=== PATIENT | female | born 1975 | race Caucasian/White ===

== ENCOUNTER → 2020-01-26 14:40 | Outpatient (BNVA) | payer MEDICARE, MEDICAID, SELFPAY | PROVIDERS: Visit Provider Nurse Practitioner Family | DX: R50.9 Fever, unspecified (principal); R05 Cough; J20.9 Acute bronchitis, unspecified | CPT/HCPCS: 71046; 87081; 87804; 87880 ==

== ENCOUNTER → 2020-02-22 13:02 | Outpatient (BNVA) | payer MEDICARE, MEDICAID, SELFPAY | PROVIDERS: Visit Provider Nurse Practitioner Family | DX: Z11.3 Encounter for screening for infections with a predominantly sexual mode of transmission (principal); J30.89 Other allergic rhinitis | CPT/HCPCS: 86592; 87491; 87591; 87661; 87806 ==

== ENCOUNTER → 2020-05-29 11:51 | Outpatient (BNVA) | payer MEDICARE, MEDICAID, SELFPAY | PROVIDERS: Visit Provider Family Medicine | DX: E11.65 Type 2 diabetes mellitus with hyperglycemia (principal); J45.41 Moderate persistent asthma with (acute) exacerbation; M79.7 Fibromyalgia; L03.90 Cellulitis, unspecified; E78.2 Mixed hyperlipidemia | CPT/HCPCS: 80053; 80061; 83036; 84443; 85025 ==

== ENCOUNTER → 2020-10-16 17:10 | Outpatient (BNVA) | payer MEDICARE, MEDICAID, SELFPAY | PROVIDERS: Visit Provider Nurse Practitioner Family | DX: E11.65 Type 2 diabetes mellitus with hyperglycemia (principal) | CPT/HCPCS: 80053; 80061; 81015; 82043; 82607; 83036; 83735; 84443; 85025 ==

== ENCOUNTER → 2020-11-08 10:48 | Outpatient (BNVA) | payer MEDICARE, MEDICAID, SELFPAY | PROVIDERS: Visit Provider Nurse Practitioner Family | DX: R74.8 Abnormal levels of other serum enzymes (principal); D72.829 Elevated white blood cell count, unspecified | CPT/HCPCS: 80053; 85025 ==

== ENCOUNTER 2021-01-30 12:04 | Emergency (ER) | payer MEDICARE, MEDICAID, SELFPAY ==
[2021-01-30 12:13] VITALS: BP 167/97; PULSE 77; RESP 18; TEMP 36.9; O2SAT 97; BMI 57.4
--- NOTE | 2021-01-30 12:24 | CT_ITS ---
WS: [id number] CT ABDOMEN AND PELVIS WITH CONTRAST HISTORY: RLQ abdominal pain TECHNIQUE: Imaging performed of the abdomen and pelvis with IV contrast. Single phase imaging of the abdomen. Coronal and sagittal reformats are submitted. All CT scans at [facility] use at least one of these dose optimization techniques: automated exposure control; mA and/or kV adjustment per patient size (includes targeted exams where dose is matched to clinical indication); or iterativ e reconstruction. IV CONTRAST: Omnipaque 300; 95 mL IV. Oral contrast: No DLP: 1822.12 mGy.cm COMPARISON: 04/11/2017 Lower thorax: Ovoid 5 mm nodule in the superior LEFT lower lobe abuts the fissure. This nodule was pr esent on the study from 10/17/2011. Heart is normal size. Small hiatal hernia. Liver/biliary system: Diffuse hepatic steatosis and moderate hepatomegaly. No liver lesions are ident ified. No bile duct dilatation. Gallbladder: Status post cholecystectomy. Pancreas: Normal. Spleen: Normal. Adrenal glands: Normal. Right kidney: Normal. Left kidney: Normal. Aorta: Retroaortic LEFT renal vein. Lymphadenopathy: None. Free fluid: No significant amount of free fluid. GI tract: The appendix is normal. Moderate fecal retention throughout the colon, greatest in the RIGH T colon. No obstructing lesions are identified. No colitis. Abdominal wall: There is diffuse soft tissue edema noted bilaterally. Pelvis: Prior hysterectomy. No pelvic mass or adenopathy. Minimally distended urinary bladder. Bones: Unremarkable. CT/CT abdomen pelvis w con* [id number] IMPRESSION: 1. Normal appendix. 2. Mild diffuse constipation. 3. No GI tract obstruction. 4. Prior hysterectomy and cholecystectomy. 5. Diffuse soft tissue anasarca.
--- NOTE | 2021-01-30 12:26 | ECG_ITS ---
[facility] Test Date: 2021-01-30 Pat Name: Jaylin Mathew Department: Room: Gender: Female Energy Trading Analyst: : 1975 Requested By: Ric Mcgraw Order Number: [id number] Yeimi MD: Thu Liang M.D. Measurements Intervals [place] Rate: 73 P: 34 [place]: 136 QRS: 43 QRSD: 77 T: 42 QT: 368 QTc: 406 Interpretive Statements SINUS RHYTHM SEPTAL MYOCARDIAL INFARCTION , PROBABLY OLD [40+ ms Q WAVE IN V1/V2] Compared to ECG 07/24/2017 01:39:33 Myocardial infarct finding now present Electronically Signed On 01-30-2021 23:52:02 CREMATOR by Thu Liang M.D. [id number]
--- NOTE | 2021-01-30 12:56 | ED_ITS ---
HPI - Abdominal Pain General: Chief Complaint: Abdominal Pain Stated Complaint: *poss appendicitis. Time Seen by Provider: 01/30/21 12:26 History of Present Illness: HPI narrative: The patient is a 45-year-old female who comes to the ER complaining of right lower quadrant tenderness. She was sent from her primary care's office to rule out possible appendicitis. She says the pain has been off and on for 3 days and is located in [facility] [place]. She has history of diabetes, hypertension, obstructive sleep apnea MD elicited complaint: abdominal pain Onset (ago): day(s) (3) Pain Consistency: intermittent Location: RLQ Severity: moderate Quality: cramping and sharp Exacerbating factors: nothing Relieving factors: nothing Associated Symptoms: Reports no associated symptoms; Denies GI cramping, diarrhea, nausea and vomiting Review of Systems General: Reports: 10 or more systems reviewed and unremarkable except in HPI and below Const: Denies: fatigue Eyes: Denies: change in vision, blurry vision or eye redness ENMT: Denies: throat pain, swelling of lips/tongue, ear or mastoid pain or n daniel congestion Card: Denies: chest pain, palpitations, irregular heart rhythm, edema, dyspnea on exertion or orthopnea Resp: Denies: dyspnea, productive cough or non-productive cough GI: Reports: abdominal pain; Denies: nausea, vomiting, diarrhea or GI cramping : Denies: flank pain, difficulty voiding, urinary frequency or urinary urgency Musc: Denies: neck pain, back pain, extremity pain, joint pain, joint redness, limited range of motion or muscle weakness Skin/Breast: Denies: rash, pruritus, erythema, skin pain or skin tenderness Neuro: Denies: headache(s), numbness in extremities, weakness in extremities, sensory changes, difficulty walking, dizziness, confusion or Slurred speech present Psych: Denies: anxiety or depression Endo: Denies: polyuria All/Imm: Denies: urticaria, throat swelling or tongue swelling PFSH ED PFSH: Medical History (Updated 01/30/21 @ 15:37 by Ric Mcgraw MD) Acid reflux Asthma Diabetes mellitus Exertional dyspnea Fibromyalgia Insomnia Mixed hyperlipidemia Nicotine abuse OCD (obsessive compulsive disorder) PAULINA (obstructive sleep apnea) TMJ disease Surgical History History of delivery History of cholecystectomy History of hysterectomy Family History Father Emphysema lung Myocardial infarct Mother Stroke Multiple sclerosis Social History Smoking and tobacco status: current every day smoker Alcohol intake: current Alcohol intake frequency: holidays/special occasions only Marital status: Physical Exam Const: COMMON NORMALS: no acute distress, average body habitus, patient oriented x3, no limitations, healthy appearing, alert and well nourished GENERAL APPEARANCE: cooperative, comfortable, well kempt and well developed NUTRITIONAL APPEARANCE: overweight ORIENTATION/CONSCIOUSNESS: Yes awake, Yes oriented to person, Yes oriented to place and Yes oriented to time HENMT: COMMON NORMALS: normocephalic, external ears normal and Normal external nose present HEAD & SCALP: normal to inspection and normocephalic NOSE: Normal external nose present EXTERNAL EAR: Yes external ears normal MOUTH: Normal oral and palatal mucosa present THROAT: posterior oropharynx normal Eye: COMMON NORMALS: Equal, round and reactive pupils present and EOMs intact bilaterally GENERAL EYE: appearance normal, both eyes and all related stru ctures PUPIL: Yes Equal, round and reactive pupils present Neck/C-Spine: COMMON NORMALS: full ROM, no lymphadenopathy, no meningeal signs and no JVD GENERAL: Yes normal visual inspection Lymph: LYMPHATIC: no lymphadenopathy noted Chest: COMMONS NORMALS: normal inspection of the chest and normal palpation of entire chest wall Resp: COMMON NORMALS: normal respiratory effort, No retractions, No use of accessory muscles, clear to auscultation bilaterally and percussion normal EFFORT & INSPECTION: Yes able to speak in complete sentences AUSCULTATION: clear to auscultation bilaterally PERCUSSION: percussion normal Cardio: COMMON NORMALS: no JVD, regular rate, regular rhythm, S1 normal heart sound present, S2 normal heart sound present and Peripheral pulses 2+ throughout RATE: regular rate RHYTHM: regular rhythm HEART SOUNDS: S1 normal heart sound present and S2 normal heart sound present PERIPHERAL PULSES: Peripheral pulses 2+ throughout GI: COMMON NORMALS: Normal to inspection, nondistended, normoactive bowel sounds present, Soft to palpation and no masses INSPECTION: Yes normal to inspection PALPATION: Yes Soft to palpation and Yes Tenderness to palpation present (GI) Details: RLQ (Worst over McBurney's point) : COMMON NORMALS: Yes no CVA tenderness BLADDER/KIDNEY EXAM: Yes no CVA tenderness Back/Pelvis: COMMON NORMALS: no CVA tenderness, thoracic and lumbar spine normal to inspection, no thoracic nor lumbar tenderness and thoraco-lumbar ROM normal Extremity: COMMON NORMALS: normal to inspection, full ROM, capillary refill normal, no joint enlargement and no pedal edema GENERAL: Yes normal exam except as noted Neuro: COMMON NORMALS: patient oriented x3, CN's II-XII intact bilaterally, moves all extremities, no focal motor deficits, no sensory deficits noted and gait normal SENSORIUM/ORIENTATION: Yes alert, Yes oriented to person, Yes oriented to place and Yes oriented to time MENINGEAL SIGNS: Yes no meningeal signs Psych: COMMON NORMALS: mental status grossly normal, Normal thought process present, cooperative, normal affect and speech normal APPEARANCE: Yes well kempt ATTITUDE: Yes calm SPEECH: Yes normal speech THOUGHT PROCESS: Normal thought process present Skin: COMMON NORMALS: no rashes or lesions noted GENERAL SKIN EXAM: no rashes or lesions noted Course Vital Signs: Vital signs: Vital Signs Temperature 98.5 F 01/30/21 12:13 Pulse Rate 67 01/30/21 15:00 Respiratory Rate 18 01/30/21 15:00 Blood Pressure 126/86 01/30/21 15:00 Pulse Oximetry 96 01/30/21 15:00 MDM - Abdominal Pain MDM Narrative: Medical decision making narrative: The patient came in with right lower quadrant abdominal pain. CT is negative for appendicitis. Her pain is of unclear cause but likely from constipation. Recommended stool softeners to her. Follow-up with primary doctor in a few days. ER with worsening symptoms. Lab Data: Labs: Lab Results 01/30/21 01/30/21 01/30/21 Range/Units 12:54 12:54 12:54 WBC 11.3 H (4.0-10.0) 10^3/ uL RBC 4.66 (4.1-5.3) 10^6/u L Hgb 13.0 (11.5-15.3) g/dL Hct 40.9 (37.0-47.0) % MCV 87.8 (81-99) fL MCH 27.9 L (28.0-34.0) pg MCHC 31.8 (30.0-36.0) g/dL RDW 13.2 (12.1-15.1) % Plt Count 257 (130-400) 10^3/c mm MPV 11.4 H (7.4-10.4) fL Neut % (Auto) 75.1 % Lymph % (Auto) 18.7 % [place] % (Auto) 4.4 % Eos % (Auto) 0.7 % Baso % (Auto) 0.4 % Neut # (Auto) 8.45 H (1.8-7.7) 10^3/u L Lymph # (Auto) 2.1 (0.8-4.8) 10^3/u L [place] # (Auto) 0.5 (0.2-0.9) 10^3/u L Eos # (Auto) 0.1 (0.0-0.8) 10^3/u L Baso # (Auto) 0.1 (0.0-0.1) 10^3/u L Nucleated RBC % (a uto) 0 % Nucleated RBCs # 0.0 /100WBC Sodium 129 L (136-145) mmol/L Potassium 4.0 (3.5-5.1) mmol/L Chloride 94 L (98-107) mmol/L Carbon Dioxide 26 (22-29) mmol/L Anion Gap 13.0 (5-19) BUN 6 (6-20) mg/dL Creatinine 0.5 (0.5-0.9) mg/dL GFR Calculation 134.0 H (90-130) mL/min Glucose 288 H (65-115) mg/dL Calculated Osmolal ity 276 L (285-295) mOsm/k g Lactate 1.4 (0.5-2.2) mmol/L Calcium 8.6 (8.5-10.5) mg/dL Total Bilirubin 0.3 (0.15-1.2) mg/dL AST 16 (0-32) U/L ALT 24 (0-33) U/L Alkaline Phosphata se 113 H (35-105) IU/L Total Protein 6.9 (6.6-8.7) g/dL Albumin 3.4 L (3.5-5.2) g/dL Globulin 3.5 (1.3-4.6) g/dL Lipase 33 (13-60) U/L HCG, Qual (Negative) Urine Color (Yellow) Urine Appearance (CLEAR) Urine pH (5-7) Ur Specific Gravit y (1.005-1.030) Urine Protein (Negative) Urine Glucose (UA) (Normal) Urine Ketones (Negative) Urine Blood (Negative) Urine Nitrate (Negative) Urine Bilirubin (Negative) Prot Sulfosalicyli c Acd (Negative) Urine Urobilinogen (Negative) mg/dL Ur Leukocyte Lilibeth ase (Negative) 01/30/21 01/30/21 Range/Units 13:14 13:14 WBC (4.0-10.0) 10^3/ uL RBC (4.1-5.3) 10^6/u L Hgb (11.5-15.3) g/dL Hct (37.0-47.0) % MCV (81-99) fL MCH (28.0-34.0) pg MCHC (30.0-36.0) g/dL RDW (12.1-15.1) % Plt Count (130-400) 10^3/c mm MPV (7.4-10.4) fL Neut % (Auto) % Lymph % (Auto) % [place] % (Auto) % Eos % (Auto) % Baso % (Auto) % Neut # (Auto) (1.8-7.7) 10^3/u L Lymph # (Auto) (0.8-4.8) 10^3/u L [place] # (Auto) (0.2-0.9) 10^3/u L Eos # (Auto) (0.0-0.8) 10^3/u L Baso # (Auto) (0.0-0.1) 10^3/u L Nucleated RBC % (a uto) % Nucleated RBCs # /100WBC Sodium (136-145) mmol/L Potassium (3.5-5.1) mmol/L Chloride (98-107) mmol/L Carbon Dioxide (22-29) mmol/L Anion Gap (5-19) BUN (6-20) mg/dL Creatinine (0.5-0.9) mg/dL GFR Calculation (90-130) mL/min Glucose (65-115) mg/dL Calculated Osmolal ity (285-295) mOsm/k g Lactate (0.5-2.2) mmol/L Calcium (8.5-10.5) mg/dL Total Bilirubin (0.15-1.2) mg/dL AST (0-32) U/L ALT (0-33) U/L Alkaline Phosphata se (35-105) IU/L Total Protein (6.6-8.7) g/dL Albumin (3.5-5.2) g/dL Globulin (1.3-4.6) g/dL Lipase (13-60) U/L HCG, Qual Negative (Negative) Urine Color Yellow (Yellow) Urine Appearance Clear (CLEAR) Urine pH 8 H (5-7) Ur Specific Gravit y 1.010 (1.005-1.030) Urine Protein Neg (Negative) Urine Glucose (UA) 4+ H (Normal) Urine Ketones Negative (Negative) Urine Blood Neg (Negative) Urine Nitrate Negative (Negative) Urine Bilirubin Neg (Negative) Prot Sulfosalicyli c Acd Negative (Negative) Urine Urobilinogen Norm (Negative) mg/dL Ur Leukocyte Lilibeth ase Negative (Negative) Discharge Plan Discharge Patient Disposition: Home Clinical Impression: Abdominal pain Condition: Stable Prescriptions: No Action albuterol sulfate 90 mcg/actuation HFA aerosol inhaler See Rx Instructions .ROUTE .COMPLEX Qty: 8.5 RF: 5 albuterol sulfate 2.5 mg /3 mL (0.083 %) solution for nebulization 2.5 mg INHALATION Q4H PRN (Reason: shortness of breath or wheezing) Qty: 180 RF: 5 (DME) pen needle, diabetic [Lite Touch Insulin Pen [place]] 31 gauge x 5/16 needle See Rx Instructions .ROUTE .MEDSUPPLY Qty: 100 RF: 3 (DME) glucose meter See Rx Instructions .Route .MEDSUPPLY Qty: 1 RF: 0 (DME) Blood Glucose Test Strip See Rx Instructions .ROUTE .MEDSUPPLY Qty: 50 RF: 5 cyclobenzaprine 10 mg tablet 10 mg .ROUTE TID PRN (Reason: muscle spasm) Qty: 30 RF: 0 Lantus Solostar U-100 Insulin 100 unit/mL (3 mL) insulin pen 45 unit SUBCUT DAILY 30 Days Qty: 15 RF: 3 (DME) C-Pap Supplies See Rx Instructions .Route .MEDSUPPLY Qty: 1 RF: 0 furosemide 40 mg tablet 40 mg PO DAILY@0900 RF: 0 atorvastatin 40 mg tablet 40 mg PO DAILY@0900 RF: 0 potassium chloride 10 mEq capsule, extended release 10 meq PO DAILY@0900 RF: 0 citalopram 40 mg tablet 40 mg PO DAILY@0900 RF: 0 cetirizine 10 mg tablet 10 mg PO DAILY@0900 RF: 0 glipizide 10 mg tablet 10 mg PO DAILY@0900 RF: 0 gabapentin 400 mg capsule 400 mg PO BID@899,2099 RF: 0 trazodone 150 mg tablet 150 mg PO BEDTIME@2100 RF: 0 omeprazole 20 mg capsule,delayed release(DR/EC) 20 mg PO DAILY@0900 RF: 0 montelukast 10 mg tablet 10 mg PO DAILY@0900 RF: 0 fluticasone propionate 50 mcg/actuation spray,suspension 1 spray intranasal DAILY@0900 RF: 0 Discharge Orders: Discharge ED (Routine); Ordered 01/30/21 Ordered By: Ric Mcgraw Referrals: Robina Stephen MD [Primary Care Provider] - Discharge Diet: Advance as tolerated Discharge Activity: Resume usual activity Patient Instructions: Abdominal Pain (ED), Opioid Safety Activity Restrictions/Additional Instructions: You have a abdominal pain of unclear cause but likely your intestines cramping. The CAT scan does not show appendicitis. Please return to the ER with worsening symptoms otherwise follow-up with your primary care physician in a few days. Please take a stool softener to keep your bowel movements soft and regular. Coding Level of Care Code ED Food Technologist for Mathew Fwd Exam Comprehensive
[2021-01-30 13:10] VITALS: BP 128/71; PULSE 73; RESP 16; O2SAT 96
[2021-01-30 13:28] LABS: Lactate (Lactic Acid level) 1.4 mmol/L (0.5-2.2)
[2021-01-30 13:29] LABS: Basophils # 0.1 10^3/uL (0.0-0.1); Basophils % 0.4 %; Eosinophils # 0.1 10^3/uL (0.0-0.8); Eosinophils % 0.7 %; Hematocrit 40.9 % (37.0-47.0); Lymphocytes # 2.1 10^3/uL (0.8-4.8); Lymphocytes % 18.7 %; Mean Corpuscular HGB Conc 31.8 g/dL (30.0-36.0); Mean Corpuscular Hemoglobin 27.9 pg (28.0-34.0); Mean Corpuscular Volume 87.8 fL (81-99); Mean Platelet Volume 11.4 fL (7.4-10.4); Monocytes # 0.5 10^3/uL (0.2-0.9); Monocytes % 4.4 %; Neutrophils # 8.45 10^3/uL (1.8-7.7); Neutrophils % 75.1 %; Nucleated Red Blood Cells % 0 %; Platelet Count 257 10^3/cmm (130-400); Red Blood Count 4.66 10^6/uL (4.1-5.3); Red Cell Distribution Width 13.2 % (12.1-15.1); White Blood Count 11.3 10^3/uL (4.0-10.0)
[2021-01-30 13:37] LABS: Alanine Aminotransferase 24 U/L (0-33); Albumin Level 3.4 g/dL (3.5-5.2); Alkaline Phosphatase 113 IU/L (35-105); Aspartate Amino Transferase 16 U/L (0-32); Blood Urea Nitrogen 6 mg/dL (6-20); Calcium 8.6 mg/dL (8.5-10.5); Carbon Dioxide 26 mmol/L (22-29); Chloride 94 mmol/L (98-107); Globulin 3.5 g/dL (1.3-4.6); Glucose 288 mg/dL (65-115); Lipase 33 U/L (13-60); Osmolality Calculated 276 mOsm/kg (285-295); Sodium 129 mmol/L (136-145); Total Bilirubin 0.3 mg/dL (0.15-1.2); Total Protein 6.9 g/dL (6.6-8.7)
[2021-01-30 13:41] LABS: Add Urine Microscopic? NO
[2021-01-30 13:47] LABS: Bilirubin Urine Neg (Negative); Blood Urine Neg (Negative); Glucose Urine UA 4+ (Normal); HCG Qualitative Urine. Negative (Negative); Ketones Urine Negative (Negative); Leukocyte Esterase Urine Negative (Negative); Nitrate Urine Negative (Negative); Protein Urine Neg (Negative); Sulfosalicylic Acid Urine Negative (Negative); Urine Appearance Clear (CLEAR); Urine Color Yellow (Yellow); Urobilinogen Urine Norm (Negative); pH Urine 8 (5-7)
[2021-01-30] MEDS: iohexol 300 mg/mL 100 mL Btl IV (13:49)
[2021-01-30 14:00] VITALS: BP 107/64; PULSE 67; RESP 17; O2SAT 96
[2021-01-30 15:00] VITALS: BP 126/86; PULSE 67; RESP 18; O2SAT 96
[2021-01-30 16:11] VITALS: BP 126/86; PULSE 67; RESP 18; O2SAT 96
== END 2021-01-30 16:13 | disposition home or self-care (01) ==
PROVIDERS: Emergency Provider Family Medicine; PCP Family Medicine
DX: R10.9 Unspecified abdominal pain (principal); Z79.4 Long term (current) use of insulin; E11.9 Type 2 diabetes mellitus without complications; E78.2 Mixed hyperlipidemia; F17.210 Nicotine dependence, cigarettes, uncomplicated
CPT/HCPCS: 74177; 80053; 81003; 81025; 83605; 83690; 85025; 93005; 99283; 99291; Q9967

== ENCOUNTER → 2021-03-12 12:17 | Outpatient (BNVA) | payer MEDICARE, MEDICAID, SELFPAY | PROVIDERS: PCP Family Medicine; Visit Provider Family Medicine | DX: E11.65 Type 2 diabetes mellitus with hyperglycemia (principal); E78.2 Mixed hyperlipidemia; M79.7 Fibromyalgia; M54.9 Dorsalgia, unspecified; G89.29 Other chronic pain | CPT/HCPCS: 80053; 80061; 83036; 84443; 85025 ==

== ENCOUNTER 2021-03-23 10:00 | Emergency (ER) | payer MEDICARE, MEDICAID, SELFPAY ==
[2021-03-23 10:07] VITALS: BP 139/78; PULSE 68; RESP 16; TEMP 37.1; O2SAT 96; BMI 56.6
--- NOTE | 2021-03-23 10:14 | ED_ITS ---
HPI - Allergic Reaction General: Chief complaint: Allergic Reaction Stated complaint: REACTION TO MEDICATION Time Seen by Provider: 03/23/21 10:11 History of Present Illness: HPI narrative: Patient is a 46-year-old female comes to the ED with allergic reaction to medication. Patient says that she started taking Jardiance approximately 1 week ago. She says after she has taken Jardiance for the last week she develops a little bit of nausea weakness and malaise and the symptoms will resolve after a couple hours. She says today when she took her Jardiance although symptoms were worse and she was feeling some heart palpitations. Patient also felt like she had some face swelling as well this time after taking Jardiance. Patient called EMS and had them bring her to the hospital to be evaluated. Patient says she has not taken any Benadryl or any other medication after taking the Jardiance. Here in the ED patient describes feeling very weak and is not having any current heart palpitations. Associated symptoms: Reports facial swelling and nausea; Deny abdominal pain or vomiting Review of Systems Const: Reports: fatigue (Generalized weakness) and malaise; Denies: fever(s) or chills Eyes: Denies: change in vision or eye discomfort ENMT: Denies: throat pain, odynophagia, nasal discharge or nasal congestion Card: Reports: palpitations (Resolved by the time she arrived to the ED.); Denies: chest pain, edema, swelling of feet/ankles, dyspnea on exertion or orthopnea Resp: Denies: dyspnea, productive cough or non-productive cough GI: Reports: nausea; Denies: abdominal pain, vomiting, diarrhea, constipation or hematochezia : Denies: flank pain, dysuria or hematuria Musc: Denies: neck pain, back pain or extremity swelling Skin/Breast: Denies: rash or new lesions Neuro: Denies: headache(s), numbness in extremities or weakness in extremities All/Imm: Reports: facial swelling PFSH ED PFSH: Medical History Acid reflux Asthma Diabetes mellitus Exertional dyspnea Fibromyalgia Insomnia Mixed hyperlipidemia Nicotine abuse OCD (obsessive compulsive disorder) PAULINA (obstructive sleep apnea) TMJ disease Surgical History History of delivery History of cholecystectomy History of hysterectomy Family History Father Emphysema lung Myocardial infarct Mother Stroke Multiple sclerosis Social History Smoking and tobacco status: current every day smoker Alcohol intake: current Alcohol intake frequency: holidays/special occasions only Marital status: Physical Exam Narrative: EXAM NARRATIVE: Patient is sitting comfortably on exam bed when I enter the room when she appears in no acute distress or pain. Const: COMMON NORMALS: no acute distress, patient oriented x3 and alert GENERAL APPEARANCE: cooperative and comfortable NUTRITIONAL APPEARANCE: obese HENMT: COMMON NORMALS: normocephalic HEAD & SCALP: normocephalic MOUTH: Normal oral and palatal mucosa present THROAT: posterior oropharynx normal and uvula midline OTHER: No noted facial swelling, lip or tongue swelling noted. Neck/C-Spine: COMMON NORMALS: supple GENERAL: Yes normal visual inspection Resp: COMMON NORMALS: normal respiratory effort, No retractions, No use of accessory muscles and clear to auscultation bilaterally AUSCULTATION: clear to auscultation bilaterally Cardio: COMMON NORMALS: regular rate, regular rhythm, S1 normal heart sound present, S2 normal heart sound present, No gallops present (Cardio), No clicks present (Cardio), No murmurs present (Cardio) and Peripheral pulses 2+ throughout RATE: regular rate RHYTHM: regular rhythm HEART SOUNDS: S1 normal heart sound present and S2 normal heart sound present PERIPHERAL PULSES: Peripheral pulses 2+ throughout GI: COMMON NORMALS: Normal to inspection, nondistended, normoactive bowel sounds present, Soft to palpation, non-tender and no masses PALPATION: Yes Soft to palpation : COMMON NORMALS: Yes no CVA tenderness BLADDER/KIDNEY EXAM: Yes no CVA tenderness Back/Pelvis: COMMON NORMALS: no CVA tenderness Extremity: COMMON NORMALS: normal to inspection Neuro: COMMON NORMALS: patient oriented x3 and moves all extremities SENSORIUM/ORIENTATION: Yes alert Skin: GENERAL SKIN EXAM: dry skin Course Reevaluation(s): Reevaluation #1: Patient was given IM diphenhydramine 50 mg and 125 mg of Solu-Medrol IM and afterwards her symptoms greatly improved. Patient was also given some Zofran to help with nausea. Time: 11:22 Vital Signs: Vital signs: Vital Signs Temperature 98.7 F 04/30/21 10:07 Pulse Rate 65 03/23/21 10:28 Respiratory Rate 18 03/23/21 10:28 Blood Pressure 139/78 03/23/21 10:28 Pulse Oximetry 96 03/23/21 10:28 MDM - Allergic Reaction MDM Narrative: Medical decision making narrative: Patient is a 46-year-old female that comes to the ED after having allergic reaction to medication she is taking. Upon arrival to the ED patient's vitals were stable and she appeared in no acute distress or pain. She was given a dose of IM diphenhydramine and IM Solu-Medrol. Patient says her symptoms resolved after meds. Patient diagnosed with an allergic reaction to a drug and she was told to stop taking the Jardiance which caused her reaction. She was discharged home with a prescription for prednisone and Zofran. She is told to contact her PCP to discuss alternative to Jardiance. Return to ED precautions given. Patient understood and agree with plan. Discharge Plan Discharge Patient Disposition: Home Clinical Impression: Allergic reaction to drug Qualifiers: Encounter type: initial encounter Qualified Code(s): T78.40XA - Allergy, unspecified, initial encounter Condition: Stable Prescriptions: New prednisone 50 mg tablet 50 mg PO DAILY 3 Days Qty: 3 RF: 0 ondansetron HCl 4 mg tablet 4 mg PO Q8H PRN (Reason: nausea and vomiting) Qty: 12 RF: 0 No Action albuterol sulfate 2.5 mg /3 mL (0.083 %) solution for nebulization 2.5 mg INHALATION Q4H PRN (Reason: shortness of breath or wheezing) Qty: 180 RF: 5 (DME) pen needle, diabetic [Lite Touch Insulin Pen [place]] 31 gauge x 5/16 needle See Rx Instructions .ROUTE .MEDSUPPLY Qty: 100 RF: 3 (DME) glucose meter See Rx Instructions .Route .MEDSUPPLY Qty: 1 RF: 0 gabapentin 600 mg tablet 600 mg PO TID Qty: 90 RF: 4 cyclobenzaprine 10 mg tablet 10 mg .ROUTE TID PRN (Reason: muscle spasm) Qty: 30 RF: 0 Lantus Solostar U-100 Insulin 100 unit/mL (3 mL) insulin pen 45 unit SUBCUT DAILY 30 Days Qty: 15 RF: 3 (DME) C-Pap Supplies See Rx Instructions .Route .MEDSUPPLY Qty: 1 RF: 0 albuterol sulfate 90 mcg/actuation HFA aerosol inhaler See Rx Instructions .ROUTE .COMPLEX Qty: 8.5 RF: 2 blood sugar diagnostic [OneTouch Ultra Blue Test Strip] Strip See Rx Instructions .ROUTE .COMPLEX Qty: 50 RF: 5 trazodone 150 mg tablet See Rx Instructions .ROUTE .COMPLEX Qty: 30 RF: 0 glipizide 10 mg tablet See Rx Instructions .ROUTE .COMPLEX Qty: 60 RF: 0 furosemide 40 mg tablet See Rx Instructions .ROUTE .COMPLEX Qty: 30 RF: 0 citalopram 40 mg tablet See Rx Instructions .ROUTE .COMPLEX Qty: 30 RF: 0 cetirizine 10 mg tablet See Rx Instructions .ROUTE .COMPLEX Qty: 30 RF: 5 fluconazole [Diflucan] 150 mg tablet 150 mg PO DAILY 3 Days Qty: 3 RF: 1 Jardiance 25 mg tablet 25 mg PO DAILY Qty: 90 RF: 0 atorvastatin 40 mg tablet 40 mg PO DAILY@0900 RF: 0 potassium chloride 10 mEq capsule, extended release 10 meq PO DAILY@0900 RF: 0 omeprazole 20 mg capsule,delayed release(DR/EC) 20 mg PO DAILY@0900 RF: 0 montelukast 10 mg tablet 10 mg PO DAILY@0900 RF: 0 fluticasone propionate 50 mcg/actuation spray,suspension 1 spray intranasal DAILY@0900 RF: 0 Discharge Orders: Discharge ED (Routine); Ordered 03/23/21 Ordered By: Mookie Braron Referrals: Robina Stephen MD [Primary Care Provider] - Discharge Diet: Regular Discharge Activity: Resume usual activity Patient Instructions: Allergic Reaction Activity Restrictions/Additional Instructions: Call your PCP to discuss your reaction to Jardiance and an alternative medication. Stop taking Jardiance. Take medications as prescribed. Return to the ER or your medical provider if condition worsens. Please read and understand discharge instructions. If any questions, please ask. Coding Level of Care Code ED Senior Investment Analyst for Mathew Fwmelinda Exam Comprehensive
[2021-03-23] MEDS: diphenhydrAMINE 50 mg/mL SDV 1mL IM (10:25)
[2021-03-23 10:28] VITALS: BP 139/78; PULSE 65; RESP 18; O2SAT 96
[2021-03-23] MEDS: ondansetron 4 MG Tablet PO (11:21)
== END 2021-03-23 12:30 | disposition home or self-care (01) ==
PROVIDERS: Emergency Provider Physician Assistant; PCP Family Medicine
DX: T78.40XA Allergy, unspecified, initial encounter (principal); Z79.4 Long term (current) use of insulin; E11.9 Type 2 diabetes mellitus without complications; E78.2 Mixed hyperlipidemia; F17.210 Nicotine dependence, cigarettes, uncomplicated
CPT/HCPCS: 96372; 99283; J1200; J2930; Q0162

== ENCOUNTER → 2021-04-11 08:45 | Outpatient (BNVA) | payer MEDICARE, MEDICAID, SELFPAY | PROVIDERS: PCP Family Medicine; Visit Provider Anesthesiology Pain Medicine | DX: G89.29 Other chronic pain (principal); M47.816 Spondylosis without myelopathy or radiculopathy, lumbar region; M54.9 Dorsalgia, unspecified; F17.210 Nicotine dependence, cigarettes, uncomplicated; Z79.891 Long term (current) use of opiate analgesic | CPT/HCPCS: 99203 ==

== ENCOUNTER → 2021-07-03 10:00 | Outpatient (BNVA) | payer MEDICARE, MEDICAID, SELFPAY | PROVIDERS: PCP Family Medicine; Visit Provider Family Medicine | DX: R10.9 Unspecified abdominal pain (principal); H66.90 Otitis media, unspecified, unspecified ear; H66.93 Otitis media, unspecified, bilateral; N39.0 Urinary tract infection, site not specified | CPT/HCPCS: 81003 ==

== ENCOUNTER 2021-08-14 22:29 | Emergency (ER) | payer MEDICARE, MEDICAID, SELFPAY ==
--- NOTE | 2021-08-14 22:33 | CTR_ITS ---
PROCEDURE INFORMATION: Exam: CT Head Without Contrast Exam date and time: 08/14/2021 10:33 PM Age: 46 years old Clinical indication: Altered mental status/memory loss and weakness, extremity; Confusion or disorientation; Patient HX: AMS. Confusion. Bilateral arm and leg weakness. TECHNIQUE: Imaging protocol: Computed tomography of the head without contrast. Radiation optimization: All CT scans at this facility use at least one of these dose optimization techniques: automated exposure control; mA and/or kV adjustment per patient size (includes targeted exams where dose is matched to clinical indication); or iterative reconstruction. COMPARISON: CT head wo con* [id number] 10/18/2016 9:57 PM RADIATION DOSE METRICS: Total DLP (mGy-cm): 916.86 FINDINGS: Brain: Stable mild nonspecific white matter low attenuation in the left frontal lobe. No acute infarct or hemorrhage. Cerebral ventricles: No ventriculomegaly. Paranasal sinuses: Paranasal sinuses are clear. No air-fluid level. Mastoid air cells: Visualized mastoid air cells are clear. Bones/joints: No calvarial or skull base fracture. Soft tissues: Unremarkable. CT/CT head wo con* [id number] IMPRESSION: 1. No calvarial or skull base fracture. 2. No acute infarct or hemorrhage. Radiation Dose CTDIVOL = (mGy): DLP = 916.86 (mGy-cm)
--- NOTE | 2021-08-14 22:33 | XRR_ITS ---
PROCEDURE INFORMATION: Exam: XR Chest Exam date and time: 08/14/2021 10:33 PM Age: 46 years old Clinical indication: Patient HX: AMS. Confusion. Bilateral arm and leg weakness. TECHNIQUE: Imaging protocol: XR of the chest. Views: 1 view. COMPARISON: CR XR chest 2V* [id number] 01/26/2020 2:43 PM FINDINGS: Lungs: Unremarkable. No consolidation. Pleural spaces: Unremarkable. No pleural effusion. No pneumothorax. Heart/Mediastinum: Unremarkable. No cardiomegaly. Bones/joints: Unremarkable. XR/XR chest 1V portable [id number] IMPRESSION: No acute disease.
--- NOTE | 2021-08-14 22:34 | ECG_ITS ---
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 Measurements Intervals [place] Rate: 72 P: 48 NC: 139 QRS: 35 QRSD: 97 T: 34 QT: 408 QTc: 447 Interpretive Statements SINUS RHYTHM POSSIBLE ANTERIOR MYOCARDIAL INFARCTION , PROBABLY OLD [30 ms Q WAVE IN V3/V4, OR R < 0.2 mV IN V4] Compared to ECG 01/30/2021 12:57:41 No significant changes Electronically Signed On 08-15-2021 23:26:12 CDT by Thu Liang M.D. [id number] f
--- NOTE | 2021-08-14 22:38 | ED_ITS ---
HPI - Weakness General: Chief complaint: Weakness Stated complaint: WEAKNESS Time Seen by Provider: 08/14/21 22:29 Source: patient and EMS Mode of arrival: EMS Limitations: no limitations and altered mental status History of Present Illness: HPI Narrative: 46-year-old female who is here by EMS with altered mental status and weakness. They state per family she has had a possible history of a stroke in the past. She also is a diabetic and has morbid obesity. Per EMS family states since 11 she has had severe weakness. Here she is not able to lift either arm or legs. Clark states that it seems she was able to ambulate with assistance. Here she is able answer some my questions. She does know her name she does not know the president. While the questions I asked her she says she does not know. She is told me she had a headache but she is unsure when it started she unsure if its the severity either. History is very difficult to obtain from her at this time. No known fevers. Associated symptoms: Reports confusion; Denies chest pain, chills, dysuria, easy bruising, fever(s), headache(s), nausea or vomiting Review of Systems Const: Denies: fever(s), chills, body aches or change in appetite Eyes: Denies: blurry vision or eye discomfort ENMT: Denies: throat pain or dental pain Card: Denies: chest pain Resp: Denies: dyspnea GI: Denies: abdominal pain, nausea, vomiting or diarrhea : Denies: dysuria Musc: Denies: neck pain or back pain Skin/Breast: Denies: rash Neuro: Reports: weakness in extremities and confusion; Denies: headache(s) Psych: Denies: depression Carmelo/Lymph: Denies: easy bruising All/Imm: Denies: urticaria PFSH ED PFSH: Medical History (Updated 08/15/21 @ 00:19 by Reed Lora MD) Acid reflux Asthma Diabetes mellitus Exertional dyspnea Fibromyalgia Insomnia Mixed hyperlipidemia Nicotine abuse OCD (obsessive compulsive disorder) PAULINA (obstructive sleep apnea) TMJ disease Surgical History History of delivery History of cholecystectomy History of hysterectomy Family History Father Emphysema lung Myocardial infarct Mother Stroke Multiple sclerosis Social History Smoking and tobacco status: current every day smoker Alcohol intake: current Alcohol intake frequency: holidays/special occasions only Marital status: Physical Exam Const: COMMON NORMALS: alert; negative for patient oriented x3 NUTRITIONAL APPEARANCE: obese ORIEN TATION/CONSCIOUSNESS: Yes oriented to person and Yes confused; not oriented to place and not oriented to time HENMT: COMMON NORMALS: normocephalic and atraumatic HEAD & SCALP: normocephalic and atraumatic Eye: COMMON NORMALS: Equal, round and reactive pupils present and EOMs intact bilaterally PUPIL: Yes Equal, round and reactive pupils present Neck/C-Spine: COMMON NORMALS: full ROM and supple Chest: COMMONS NORMALS: normal inspection of the chest and normal palpation of entire chest wall Resp: COMMON NORMALS: normal respiratory effort, No retractions, No use of accessory muscles and clear to auscultation bilaterally AUSCULTATION: clear to auscultation bilaterally Cardio: COMMON NORMALS: regular rate, regular rhythm and No murmurs present (Cardio) RATE: regular rate RHYTHM: regular rhythm GI: COMMON NORMALS: Normal to inspection, nondistended, normoactive bowel sounds present, Soft to palpation, non-tender and no masses PALPATION: Yes Soft to palpation Extremity: COMMON NORMALS: normal to inspection and full ROM Neuro: COMMON NORMALS: moves all extremities and no focal motor deficits; negative for patient oriented x3 SENSORIUM/ORIENTATION: Yes alert, Yes oriented to person, No oriented to place and No oriented to time Psych: COMMON NORMALS: Normal thought process present and cooperative; negative for mental status grossly normal THOUGHT PROCESS: Normal thought process present Skin: COMMON NORMALS: no rashes or lesions noted and no wounds GENERAL SKIN EXAM: no rashes or lesions noted Course Vital Signs: Vital signs: Vital Signs Temperature 98.3 F 08/14/21 22:41 Pulse Rate 70 08/14/21 23:20 Respiratory Rate 16 08/14/21 23:20 Blood Pressure 158/87 08/14/21 23:20 Pulse Oximetry 96 08/14/21 23:20 MDM - Weakness MDM Narrative: Medical decision making narrative: Presents with generalized weakness and some confusion that improved while she has been here. CT head here is normal. Last known normal was at 11 AM she is not a candidate for TPA. Patient also has a low elevated carboxyhemoglobin level likely due to her smoking. Patient was placed on a nonrebreather. She has no signs of infection no signs of meningitis. I spoke to the hospitalist and will admit for observation. Lab Data: Labs: Lab Results 08/14/21 08/14/21 08/14/21 22:40 22:40 22:40 WBC 15.3 10^3/uL H 10 ^3/uL (4.0-10.0) RBC 4.59 10^6/uL 10^6 /uL (4.1-5.3) Hgb 13.5 g/dL g/dL (11.5-15.3) Hct 42.1 % % (37.0-47.0) MCV 91.7 fl fl (81-99) MCH 29.4 pg pg (28.0-34.0) MCHC 32.1 g/dL g/dL (30.0-36.0) RDW 14.1 % % (12.1-15.1) Plt Count 279 10^3/cmm 10^3 /cmm (130-400) MPV 11.1 fL H fL (7.4-10.4) Neut % (Auto) 75.5 % % Lymph % (Auto) 17.2 % % [place] % (Auto) 5.1 % % Eos % (Auto) 0.7 % % Baso % (Auto) 0.5 % % Neut # (Auto) 11.59 10^3/uL H 1 0^3/uL (1.8-7.7) Lymph # (Auto) 2.6 10^3/uL 10^3/ uL (0.8-4.8) [place] # (Auto) 0.8 10^3/uL 10^3/ uL (0.2-0.9) Eos # (Auto) 0.1 10^3/uL 10^3/ uL (0.0-0.8) Baso # (Auto) 0.1 10^3/uL 10^3/ uL (0.0-0.1) Nucleated RBC % (a uto) 0 % % Nucleated RBCs # 0.0 /100WBC /100W BC PT 14.00 SECONDS SEC ONDS (12.1-14.9) INR 1.05 (0.8-1.2) Sodium 137 mmol/L mmol/L (136-145) Potassium 3.9 mmol/L mmol/L (3.5-5.1) Chloride 100 mmol/L mmol/L (98-107) Carbon Dioxide 26 mmol/L mmol/L (22-29) Anion Gap 14.9 (5-19) BUN 6 mg/dL mg/dL (6-20) Creatinine 0.5 mg/dL mg/dL (0.5-0.9) GFR Calculation 133.4 mL/min H mL /min (90-130) Glucose 201 mg/dL H mg/dL (65-115) Calculated Osmolal ity 287 mOsm/kg mOsm/ kg (285-295) Lactate Calcium 9.3 mg/dL mg/dL (8.5-10.5) Magnesium 2.1 mg/dL mg/dL (1.7-2.3) Total Bilirubin 0.2 mg/dL mg/dL (0.15-1.2) AST 10 U/L U/L (0-32) ALT 16 U/L U/L (0-33) Alkaline Phosphata se 103 IU/L IU/L (35-105) Troponin T Baselin e Troponin T 120 Min [place] Troponin T Total Protein 6.8 g/dL g/dL (6.6-8.7) Albumin 3.9 g/dL g/dL (3.5-5.2) Globulin 2.9 g/dL g/dL (1.3-4.6) TSH 3.30 uIU/mL uIU/m L (0.27-4.20) HCG, Qual Urine Color Urine Appearance Urine pH Ur Specific Gravit y Urine Protein Urine Glucose (UA) Urine Ketones Urine Blood Urine Nitrate Urine Bilirubin Urine Urobilinogen Ur Leukocyte Lilibeth ase Salicylates < 0.3 mg/dL L mg/ dL (3-10) Acetaminophen < 5.0 ug/mL L ug/ mL (10-30) Ethyl Alcohol < 10 mg/dL mg/dL (0-10) 08/14/21 08/14/21 08/14/21 22:40 22:40 22:40 WBC RBC Hgb Hct MCV MCH MCHC RDW Plt Count MPV Neut % (Auto) Lymph % (Auto) [place] % (Auto) Eos % (Auto) Baso % (Auto) Neut # (Auto) Lymph # (Auto) [place] # (Auto) Eos # (Auto) Baso # (Auto) Nucleated RBC % (a uto) Nucleated RBCs # PT INR Sodium Potassium Chloride Carbon Dioxide Anion Gap BUN Creatinine GFR Calculation Glucose Calculated Osmolal ity Lactate 1.8 mmol/L mmol/L (0.5-2.2) Calcium Magnesium Total Bilirubin AST ALT Alkaline Phosphata se Troponin T Baselin e 6 ng/L ng/L (0-10) Troponin T 120 Min [place] Troponin T Total Protein Albumin Globulin TSH HCG, Qual Negative (Negative) Urine Color Urine Appearance Urine pH Ur Specific Gravit y Urine Protein Urine Glucose (UA) Urine Ketones Urine Blood Urine Nitrate Urine Bilirubin Urine Urobilinogen Ur Leukocyte Lilibeth ase Salicylates Acetaminophen Ethyl Alcohol 08/14/21 08/15/21 23:24 00:35 WBC RBC Hgb Hct MCV MCH MCHC RDW Plt Count MPV Neut % (Auto) Lymph % (Auto) [place] % (Auto) Eos % (Auto) Baso % (Auto) Neut # (Auto) Lymph # (Auto) [place] # (Auto) Eos # (Auto) Baso # (Auto) Nucleated RBC % (a uto) Nucleated RBCs # PT INR Sodium Potassium Chloride Carbon Dioxide Anion Gap BUN Creatinine GFR Calculation Glucose Calculated Osmolal ity Lactate Calcium Magnesium Total Bilirubin AST ALT Alkaline Phosphata se Troponin T Baselin e Troponin T 120 Min [place] 6.00 ng/L ng/L (0-10) Delta Troponin T 0 ABS# ABS# (0-10) Total Protein Albumin Globulin TSH HCG, Qual Urine Color Yellow (Yellow) Urine Appearance Clear (CLEAR) Urine pH 6.5 (5-7) Ur Specific Gravit y 1.010 (1.005-1.030) Urine Protein Neg (Negative) Urine Glucose (UA) Norm (Normal) Urine Ketones Negative (Negative) Urine Blood Neg (Negative) Urine Nitrate Negative (Negative) Urine Bilirubin Neg (Negative) Urine Urobilinogen Norm mg/dL mg/dL (Negative) Ur Leukocyte Lilibeth ase Negative (Negative) Salicylates Acetaminophen Ethyl Alcohol Imaging Data^: CXR: Attestation: I personally reviewed and interpreted this imaging study as follows: Radiologist's impression: [employer] [address] XRay Report Signed Patient: Jaylin Mathew Unit #: [id number] : 1975 Age/Sex: 46 / F ADM Date: 08/14/21 Loc: ER Room/Bed: Attending Dr: Ordering Provider/Ordering MD: Reed Lora MD Date of Service: 08/14/21 Procedure(s): XR chest 1V portable [id number] Accession Number(s): [id number] Report Number: [id number] PROCEDURE INFORMATION: Exam: XR Chest Exam date and time: 08/14/2021 10:33 PM Age: 46 years old Clinical indication: Patient HX: AMS. Confusion. Bilateral arm and leg weakness. TECHNIQUE: Imaging protocol: XR of the chest. Views: 1 view. COMPARISON: CR XR chest 2V* [id number] 01/26/2020 2:43 PM FINDINGS: Lungs: Unremarkable. No consolidation. Pleural spaces: Unremarkable. No pleural effusion. No pneumothorax. Heart/Mediastinum: Unremarkable. No cardiomegaly. Bones/joints: Unremarkable. XR/XR chest 1V portable [id number] IMPRESSION: No acute disease. Dictated By: Ayan Kramer Signed By: Ayan Kramer Signed Date/Time: 08/14/212344 DD/ 43 EKG Data^: EKG 1: Attestation: I personally reviewed and interpreted this EKG as follows: EKG interpretation date: 08/14/21 EKG interpretation time: 22:48 Interpretation: nsr hr [address] or twave abnormalities qrs 97 qtc 431 EKG 2: Attestation: I personally reviewed and interpreted this EKG as follows: EKG interpretation date: 08/15/21 EKG interpretation time: 00:49 Interpretation: nsr hr 62 with no s tor t wave abnormalities qrs 106 qtc 450 Discharge Plan Discharge Patient Disposition: Admitted As Inpatient Clinical Impression: Weakness, Carboxyhemoglobinemia Altered mental status Qualifiers: Altered mental status type: unspecified Qualified Code(s): R41.82 - Altered mental status, unspecified Condition: Stable Coding Level of Care Code [employer] Curator for Chg Fwd Exam Comprehensive
[2021-08-14 22:41] VITALS: BP 134/95; PULSE 75; RESP 16; TEMP 36.8; O2SAT 94; BMI 58.6
[2021-08-14 22:49] LABS: Basophils # 0.1 10^3/uL (0.0-0.1); Basophils % 0.5 %; Eosinophils # 0.1 10^3/uL (0.0-0.8); Eosinophils % 0.7 %; Hematocrit 42.1 % (37.0-47.0); Hemoglobin 13.5 g/dL (11.5-15.3); Lymphocytes # 2.6 10^3/uL (0.8-4.8); Lymphocytes % 17.2 %; Mean Corpuscular HGB Conc 32.1 g/dL (30.0-36.0); Mean Corpuscular Hemoglobin 29.4 pg (28.0-34.0); Mean Corpuscular Volume 91.7 fl (81-99); Mean Platelet Volume 11.1 fL (7.4-10.4); Monocytes # 0.8 10^3/uL (0.2-0.9); Monocytes % 5.1 %; Neutrophils # 11.59 10^3/uL (1.8-7.7); Neutrophils % 75.5 %; Nucleated Red Blood Cells % 0 %; Platelet Count 279 10^3/cmm (130-400); Red Blood Count 4.59 10^6/uL (4.1-5.3); Red Cell Distribution Width 14.1 % (12.1-15.1); White Blood Count 15.3 10^3/uL (4.0-10.0)
[2021-08-14 22:59] LABS: INR 1.05 (0.8-1.2)
[2021-08-14 23:01] VITALS: BP 158/87; PULSE 78; RESP 17; O2SAT 95
[2021-08-14 23:04] LABS: HCG, Serum Qual Negative (Negative)
[2021-08-14] MEDS: sodium chloride 0.9% 1,000 ML 999 ML IV (23:09)
[2021-08-14 23:13] VITALS: PULSE 74; RESP 16
[2021-08-14 23:14] LABS: Lactate (Lactic Acid level) 1.8 mmol/L (0.5-2.2)
[2021-08-14 23:15] VITALS: BP 158/87; PULSE 73; RESP 18; O2SAT 95
[2021-08-14 23:19] LABS: Troponin(5th) Baseline 6 ng/L (0-10)
[2021-08-14 23:20] VITALS: BP 158/87; PULSE 70; RESP 16; O2SAT 96
[2021-08-14 23:26] LABS: Acetaminophen < 5.0 ug/mL (10-30); Alanine Aminotransferase 16 U/L (0-33); Albumin Level 3.9 g/dL (3.5-5.2); Alcohol Level < 10 mg/dL (0-10); Alkaline Phosphatase 103 IU/L (35-105); Anion Gap 14.9 (5-19); Aspartate Amino Transferase 10 U/L (0-32); Blood Urea Nitrogen 6 mg/dL (6-20); Calcium 9.3 mg/dL (8.5-10.5); Carbon Dioxide 26 mmol/L (22-29); Chloride 100 mmol/L (98-107); Globulin 2.9 g/dL (1.3-4.6); Glomerular Filtration Rate 133.4 mL/min (90-130); Glucose 201 mg/dL (65-115); Magnesium 2.1 mg/dL (1.7-2.3); Osmolality Calculated 287 mOsm/kg (285-295); Potassium 3.9 mmol/L (3.5-5.1); Salicylate < 0.3 mg/dL (3-10); Sodium 137 mmol/L (136-145); Total Bilirubin 0.2 mg/dL (0.15-1.2); Total Protein 6.8 g/dL (6.6-8.7)
[2021-08-14 23:28] LABS: Add Urine Microscopic? NO; Charge for UA Resulting for Rev
[2021-08-14 23:36] LABS: Bilirubin Urine Neg (Negative); Blood Urine Neg (Negative); Glucose Urine UA Norm (Normal); Ketones Urine Negative (Negative); Leukocyte Esterase Urine Negative (Negative); Nitrate Urine Negative (Negative); Protein Urine Neg (Negative); Urine Appearance Clear (CLEAR); Urine Color Yellow (Yellow); Urobilinogen Urine Norm (Negative); pH Urine 6.5 (5-7)
--- NOTE | 2021-08-15 00:34 | ECG_ITS ---
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 Measurements Intervals [place] Rate: 62 P: 53 DC: 142 QRS: 41 QRSD: 106 T: 33 QT: 445 QTc: 452 Interpretive Statements SINUS RHYTHM POSSIBLE ANTERIOR MYOCARDIAL INFARCTION , OF INDETERMINATE AGE [30 ms Q WAVE IN V3/V4, OR R < 0.2 mV IN V4] Compared to ECG 08/14/2021 22:48:45 No significant changes Electronically Signed On 08-15-2021 23:47:23 CDT by Thu Liang M.D. [id number] f
[2021-08-15 01:01] LABS: Troponin 5 2HR Delta 0 ABS# (0-10)
[2021-08-15 03:47] VITALS: BP 158/87; PULSE 70; RESP 16; TEMP 36.8; O2SAT 96
[2021-08-17 17:31] LABS: ABG PCO2 44.7 mmHg (35-45); ABG PH Result 7.41 (7.35-7.45); Arterial Blood Gas Hematocrit 40.6 % (37-47); Base Excess ABG 2.9 mmol/L (-2.0-2.0); Blood Gas Allen Test Pos; Blood Gas Operator Identificat HARKR; Blood Gas Sample Site Radial, right; Blood Gas Sample Type Arterial; HCO3 ABG 28.2 mmol/L (22-26); Oxygen Device ROOM AIR
== END 2021-08-15 03:48 | disposition left against medical advice (07) ==
PROVIDERS: Emergency Provider Emergency Medicine; PCP Family Medicine
DX: R53.1 Weakness (principal); R41.82 Altered mental status, unspecified; T58.91XA Toxic effect of carbon monoxide from unspecified source, accidental (unintentional), initial encounter; D59.9 Acquired hemolytic anemia, unspecified; E11.9 Type 2 diabetes mellitus without complications; E78.2 Mixed hyperlipidemia; F17.210 Nicotine dependence, cigarettes, uncomplicated
CPT/HCPCS: 36415; 36600; 70450; 71045; 80053; 80307; 81003; 82803; 83605; 83735; 84443; 84484; 84703; 85025; 85610; 93005; 96360; 99284; J7030

== ENCOUNTER → 2021-09-06 14:38 | Outpatient (BNVA) | payer MEDICARE, MEDICAID, SELFPAY | PROVIDERS: PCP Family Medicine; Visit Provider Specialist | DX: E04.1 Nontoxic single thyroid nodule (principal); E11.65 Type 2 diabetes mellitus with hyperglycemia; E78.2 Mixed hyperlipidemia | CPT/HCPCS: 80053; 80061; 83036; 84439; 84443; 85025 ==

== ENCOUNTER → 2021-09-14 13:39 | Outpatient (BNVA) | payer MEDICARE, MEDICAID, SELFPAY | PROVIDERS: PCP Family Medicine; Visit Provider Nurse Practitioner Family | DX: Z11.52 Encounter for screening for COVID-19 (principal); Z20.822 Contact with and (suspected) exposure to COVID-19 | CPT/HCPCS: 87635 ==

== ENCOUNTER → 2022-01-08 10:12 | Outpatient (BNVA) | payer MEDICARE, MEDICAID, SELFPAY | PROVIDERS: PCP Family Medicine; Visit Provider Nurse Practitioner Family | DX: Z20.822 Contact with and (suspected) exposure to COVID-19 (principal); R05.9 Cough, unspecified; R50.9 Fever, unspecified | CPT/HCPCS: 87635 ==

== ENCOUNTER → 2022-01-24 10:37 | Outpatient (BNVA) | payer MEDICARE, MEDICAID, SELFPAY | PROVIDERS: PCP Family Medicine; Visit Provider Nurse Practitioner Family | DX: E11.65 Type 2 diabetes mellitus with hyperglycemia (principal); E66.9 Obesity, unspecified; M79.675 Pain in left toe(s); E78.2 Mixed hyperlipidemia; M79.7 Fibromyalgia; J45.909 Unspecified asthma, uncomplicated; M19.90 Unspecified osteoarthritis, unspecified site; E11.42 Type 2 diabetes mellitus with diabetic polyneuropathy; G47.00 Insomnia, unspecified | CPT/HCPCS: 80053; 80061; 82306; 83036; 84443; 84550; 85651; 86140 ==

== ENCOUNTER → 2022-06-20 10:16 | Outpatient (BNVA) | payer MEDICARE, MEDICAID, SELFPAY | PROVIDERS: PCP Nurse Practitioner Family; Visit Provider Nurse Practitioner Family | DX: E11.65 Type 2 diabetes mellitus with hyperglycemia (principal); E78.2 Mixed hyperlipidemia; E87.6 Hypokalemia; E55.9 Vitamin D deficiency, unspecified; G62.9 Polyneuropathy, unspecified; M79.7 Fibromyalgia; R60.9 Edema, unspecified; J45.909 Unspecified asthma, uncomplicated; K21.9 Gastro-esophageal reflux disease without esophagitis; R11.0 Nausea; E11.9 Type 2 diabetes mellitus without complications; M54.50 Low back pain, unspecified; G89.29 Other chronic pain; G47.33 Obstructive sleep apnea (adult) (pediatric) | CPT/HCPCS: 80053; 80061; 83036 ==

== ENCOUNTER → 2022-08-15 14:06 | Outpatient (BNVA) | payer MEDICARE, MEDICAID, SELFPAY | PROVIDERS: PCP Nurse Practitioner Family; Visit Provider Surgery | DX: R10.13 Epigastric pain (principal) | CPT/HCPCS: 99203 ==

== ENCOUNTER 2022-08-22 08:03 | Day surgery (SDC) | payer MEDICARE, MEDICAID, SELFPAY ==
[2022-08-20 13:18] VITALS: BMI 49.8
[2022-08-22 08:35] VITALS: BP 131/79; PULSE 73; RESP 20; TEMP 36.9; O2SAT 94
--- NOTE | 2022-08-22 08:46 | ANES.PREANE2 ---
Pre-Anesthetic Assessment Height/Weight: Height 1.52 m Weight 115.666 kg Preop Diagnosis: Epigastric abdominal pain Operation Date: 08/22/22 09:30 Proposed Procedures p 80497 EGD 07756 Colon R10.13,Z12.11(Not Applicable) - Jarrod Byrne MD s Colonoscopy(Not Applicable) - Jarrod Byrne MD Familial anesthetic complications: none Was Beta Sukumar taken within 24 hours: N/A Was Clonidine taken within 24 hours: N/A Social Tobacco and No alcohol Exam alert, oriented x 3, clear to auscultation bilaterally and regular rate & rhythm Airway Mallampati: Class IV Dentition: false Pulmonary Asthma GI Gastroesophageal Reflux Disease Metabolic Diabetes Mellitus, Hyperlipidemia and Morbid Obesity [facility] Fibromyalgia Anesthetic Plan ASA status: 3 Anesthesia: MAC Risk of > 500 ml blood loss (7ml/kg in children): No Medications/Allergies Home Medications Medication Instructions Recorded Confirmed Last Taken Type glucose meter #1 ea 05/29/20 08/20/22 Unknown Rx C-Pap Supplies #1 ea 10/26/20 08/20/22 Unknown Rx blood sugar diagnostic (OneTouch See Rx Instructions .Route 09/14/21 08/20/22 Unknown Rx Ultra Test strips) .COMPLEX #50 strips atorvastatin 80 mg tablet 80 mg PO DAILY 30 days #30 tabs 06/20/22 08/22/22 08/20/22 Rx cholecalciferol (vitamin D3) 50 50 mcg PO DAILY #90 caps 06/20/22 08/22/22 08/20/22 Rx mcg (2,000 unit) capsule citalopram 40 mg tablet 40 mg PO DAILY 30 days #30 tabs 06/20/22 08/22/22 08/20/22 Rx cyclobenzaprine 10 mg tablet 10 mg PO TID PRN muscle spasm 30 06/20/22 08/22/22 1 Week Ago Rx days #90 tabs ~08/15/22 fluticasone propionate 50 2 spray intranasal DAILY@0900 #16 06/20/22 08/22/22 1 Week Ago Rx mcg/actuation nasal grams ~08/15/22 spray,suspension furosemide 40 mg tablet 40 mg PO DAILY 90 days #90 tabs 06/20/22 08/22/22 08/20/22 Rx gabapentin 400 mg capsule 400 mg PO TID 90 days #270 caps 06/20/22 08/22/22 08/20/22 Rx glipizide 10 mg tablet 10 mg PO BID 90 days #180 tabs 06/20/22 08/22/22 08/20/22 Rx ketorolac 10 mg tablet 10 mg PO TID PRN pain 5 days #15 06/20/22 08/22/22 08/20/22 Rx tabs montelukast 10 mg tablet 10 mg PO DAILY@0900 90 days #90 06/20/22 08/22/22 08/20/22 Rx tabs potassium chloride 10 mEq 10 meq PO DAILY 90 days #90 caps 06/20/22 08/22/22 08/20/22 Rx capsule,extended release semaglutide 0.25 mg or 0.5 mg (2 0.25 mg (0.2 mL) SUBCUT .Q2WK #1.5 06/20/22 08/22/22 1 Week Ago Rx mg/1.5 mL) subcutaneous pen mL ~08/15/22 injector (Ozempic) trazodone 150 mg tablet 150 mg PO DAILY #90 tabs 06/20/22 08/22/22 6 Months Ago Rx ~02/19/22 fluconazole 150 mg tablet 150 mg PO DAILY 3 days #3 tabs 06/24/22 08/22/22 08/20/22 Rx (Diflucan) albuterol sulfate 2.5 mg/3 mL 2.5 mg (3 mL) inhalation Q4H PRN 07/17/22 08/22/22 08/19/22 Rx (0.083 %) solution for nebulization shortness of breath or wheezing #180 mL insulin glargine 100 unit/mL (3 55 unit (0.55 mL) SUBCUT DAILY #15 07/17/22 08/22/22 08/19/22 Rx mL) subcutaneous pen (Lantus mL Solostar U-100 Insulin) ondansetron HCl 4 mg tablet 4 mg PO Q6H PRN nausea and 07/25/22 08/22/22 08/20/22 Rx vomiting #90 tabs pantoprazole 40 mg tablet,delayed 40 mg PO DAILY 90 days #90 tabs 07/25/22 08/22/22 08/20/22 Rx release (Protonix) sucralfate 1 gram tablet (Carafate) 1 g PO BID 30 days #60 tabs 07/25/22 08/22/22 08/20/22 Rx azithromycin 250 mg tablet See Rx Instructions PO .COMPLEX #6 08/07/22 08/22/22 08/20/22 Rx (Zithromax Z-Nicanor) tabs budesonide-formoterol HFA 160 2 puff inhalation Q12H #10.2 grams 08/07/22 08/22/22 08/20/22 Rx mcg-4.5 mcg/actuation aerosol inhaler (Symbicort) promethazine-DM 6.25 mg-15 mg/5 mL 5 - 10 ml PO Q6H PRN cough #200 mL 08/07/22 08/22/22 1 Week Ago Rx oral syrup ~08/15/22 peg 3350-electrolytes 236 240 ml PO Q10M #4,000 mL 08/15/22 08/20/22 Unknown Rx gram-22.74 gram-6.74 gram-5.86 gram solution (Golytely) albuterol sulfate 90 mcg/actuation 2 puff inhalation Q6H PRN 08/20/22 08/22/22 08/20/22 History aerosol inhaler Shortness Of Breath cetirizine 10 mg tablet 10 mg PO DAILY 08/20/22 08/22/22 08/20/22 History pen needle, diabetic 31 gauge x ##100 08/21/22 Unknown Rx 1/ (UltiCare Pen Needle) Allergies Allergy/AdvReac Type Severity Reaction Status Date / Time empagliflozin Allergy Severe felt like Verified 08/20/22 13:09 [From Jardiance] she was having a heart attack liraglutide [From Victoza] Allergy Mild made her Verified 08/20/22 13:09 sick acetaminophen Allergy Unknown Verified 08/20/22 13:09 [From Tylenol PM] mold Allergy Unknown Verified 08/20/22 13:09 sulfamethoxazole Allergy ALGY-Hives Verified 08/20/22 13:09 [From Bactrim] trimethoprim [From Bactrim] Allergy ALGY-Hives Verified 08/20/22 13:09 PFS Anesthesia Medical History Acid reflux Asthma Diabetes mellitus Exertional dyspnea Fibromyalgia Insomnia Mixed hyperlipidemia Nicotine abuse OCD (obsessive compulsive disorder) PAULINA (obstructive sleep apnea) TMJ disease Surgical History History of delivery History of cholecystectomy History of hysterectomy Family History Father Emphysema lung Myocardial infarct Mother Stroke Multiple sclerosis Social History Smoking and tobacco status: current every day smoker Alcohol intake: current Alcohol intake frequency: holidays/special occasions only Marital status: Data Anesthesia Cardiac Studies: No Data to Display
[2022-08-22] MEDS: sodium chloride 0.9% 1,000 ML 30 ML IV (09:00)
--- NOTE | 2022-08-22 09:34 | W.PM.OPSUD ---
Surgery/Procedure H&P Update DATE OF PROCEDURE: August 22, 2022 DATE H&P PERFORMED: 08/15/22 H&P UPDATE INFORMATION: I have reviewed H&P completed within last 30 days, I have examined patient prior to procedure and No changes to prior documentation PREOP DIAGNOSIS: Epigastric abdominal pain PRIMARY INDICATION FOR PROCEDURE: The same PLANNED PROCEDURE: Operation Date: 08/22/22 09:30 Proposed Procedures p 69759 EGD 57949 Colon R10.13,Z12.11(Not Applicable) - Jarrod Byrne MD s Colonoscopy(Not Applicable) - Jarrod Byrne MD
[2022-08-22 10:43] VITALS: BP 92/51; PULSE 74; RESP 20; TEMP 36.1; O2SAT 97
--- NOTE | 2022-08-22 11:00 | ANE.PACU2 ---
Inpatient post-anesthesia follow up: Airway intact: Yes Vital signs: Temperature 97.0 F Pulse Rate 74 Respiratory Rate 20 Blood Pressure 92/51 Pulse Oximetry 97 Oxygen Delivery Me thod Nasal Cannula Oxygen Flow Rate 8 Fraction of Inspir ed Oxygen Hydration adequate: Yes Nausea and vomiting: No Pain level: 1 Mental status: Baseline
[2022-08-22 11:01] VITALS: BP 113/66; PULSE 69; RESP 18; O2SAT 93
[2022-08-26 07:54] LABS: Glucose Point of Care 174 mg/dL (70-110)
== END 2022-08-22 11:10 | disposition home or self-care (01) ==
PROVIDERS: PCP Nurse Practitioner Family; Visit Provider Surgery
PROC: 0DJD8ZZ Inspection of Lower Intestinal Tract, Via Natural or Artificial Opening Endoscopic (ICD-10-PCS; CPT 45378; 2022-08-22 09:30)
PROC: 0DJ08ZZ Inspection of Upper Intestinal Tract, Via Natural or Artificial Opening Endoscopic (ICD-10-PCS; CPT 43235; 2022-08-22 09:30)
DX: Z12.11 Encounter for screening for malignant neoplasm of colon (principal); R10.13 Epigastric pain; J45.909 Unspecified asthma, uncomplicated; K21.9 Gastro-esophageal reflux disease without esophagitis; E66.01 Morbid (severe) obesity due to excess calories; Z68.42 Body mass index [BMI] 45.0-49.9, adult; E11.9 Type 2 diabetes mellitus without complications; M79.7 Fibromyalgia; G47.33 Obstructive sleep apnea (adult) (pediatric); E78.2 Mixed hyperlipidemia; F17.210 Nicotine dependence, cigarettes, uncomplicated; K62.1 Rectal polyp; K31.7 Polyp of stomach and duodenum; K21.00 Gastro-esophageal reflux disease with esophagitis, without bleeding
CPT/HCPCS: 36416; 82962; 88305; J2704; J7030

== ENCOUNTER → 2022-09-05 16:03 | Outpatient (BNVA) | payer MEDICARE, MEDICAID, SELFPAY | PROVIDERS: PCP Nurse Practitioner Family; Visit Provider Surgery | DX: Z09 Encounter for follow-up examination after completed treatment for conditions other than malignant neoplasm (principal); R14.0 Abdominal distension (gaseous); R10.9 Unspecified abdominal pain; K62.1 Rectal polyp; K31.7 Polyp of stomach and duodenum; R10.13 Epigastric pain | CPT/HCPCS: 99212 ==

== ENCOUNTER 2022-09-19 15:54 | Outpatient (CLI) | payer MEDICARE, MEDICAID, SELFPAY ==
--- NOTE | 2022-09-19 16:18 | XR_ITS ---
WS: [id number] Exam: XR lumbar spine f/e only [id number] Date/Time of Exam: 09/19/2022 4:19 PM Reason For Exam: VERTEBROGENIC LOWER BACK PAIN No fracture or malalignment. Disc spaces are preserved. Posterior elements are intact. No flexion or extension instability noted. XR/XR lumbar spine f/e only [id number] IMPRESSION: 1. Unremarkable flexion-extension views of the lumbar spine.
== END 2022-09-19 15:55 | disposition home or self-care (01) ==
LOC: RAD 15:57
PROVIDERS: PCP Nurse Practitioner Family; Visit Provider Nurse Practitioner
DX: M54.51 Vertebrogenic low back pain (principal)
CPT/HCPCS: 72120

== ENCOUNTER 2022-10-16 12:27 | Outpatient (CLI) | payer MEDICARE, MEDICAID, SELFPAY ==
--- NOTE | 2022-10-16 12:33 | CT_ITS ---
WS: [id number] CT LUMBAR SPINE, noncontrast. HISTORY: VERTEBROGENIC LOW BACK PAIN TECHNIQUE: Contiguous 2.5 mm axial imaging are performed. Sagittal and coronal reformats are submitte d and reviewed. All CT scans at [facility] use at least one of these dose optimization techni ques: automated exposure control; mA and/or kV adjustment per patient size (includes targeted exams w here dose is matched to clinical indication); or iterative reconstruction. IV contrast: None DLP: 1845.14 mGy.cm COMPARISON: 05/16/2013 Normal lumbar alignment with no loss of disc space height or vertebral body height. L1-2: Normal. L2-3: Normal. L3-4: Very slight disc bulging and mild facet arthritis. L4-5: Mild annular disc bulging with a very shallow LEFT paracentral disc protrusion. Moderate facet joint arthritis and ligamentum flavum arthritis. Increasing air in the facet joints. L5-S1: Central disc protrusion with minimal contact on the LEFT S1 nerve root. No high-grade stenosis . Mild facet arthritis. Mild atherosclerosis aorta. Mild SI joint arthritis. CT/CT lumbar spine wo con* [id number] IMPRESSION: 1. No high-grade central stenosis or disc protrusions. 2. Very small central central disc protrusion contacting the LEFT S1 nerve radha t. 3. Moderate facet joint arthritis at L4-5. Progression of facet joint arthriti s at L3-4 and L4-5 since 2012.
== END 2022-10-16 12:28 | disposition home or self-care (01) ==
LOC: RAD 12:28
PROVIDERS: PCP Nurse Practitioner Family; Visit Provider Nurse Practitioner
DX: M47.816 Spondylosis without myelopathy or radiculopathy, lumbar region (principal)
CPT/HCPCS: 72131

== ENCOUNTER → 2023-01-10 13:07 | Outpatient (BNVA) | payer MEDICARE, MEDICAID, SELFPAY | PROVIDERS: PCP Nurse Practitioner Family; Visit Provider Nurse Practitioner Family | DX: E11.65 Type 2 diabetes mellitus with hyperglycemia (principal); M79.7 Fibromyalgia; E78.2 Mixed hyperlipidemia; J45.909 Unspecified asthma, uncomplicated | CPT/HCPCS: 80053; 80061; 83036 ==

== ENCOUNTER 2023-02-24 13:59 | Outpatient (CLI) | payer MEDICARE, MEDICAID, SELFPAY ==
--- NOTE | 2023-02-24 14:00 | MM_ITS ---
WS: [id number] BILATERAL 3D TOMOSYNTHESIS DIGITAL DIAGNOSTIC MAMMOGRAPHY WITH CAD CLINICAL INFORMATION: right breast pain HISTORY: Red and swollen breast. Currently on antibiotics and improving but not resolved. COMPARISON: 2015 TECHNIQUE: Bilateral CC, MLO, and ML views. FINDINGS: Scattered fibroglandular densities bilaterally. Vascular calcification. A few tiny incidental punctat e calcifications. A few prominent intramammary lymph nodes RIGHT breast. Increased density in the are a of concern near the 7:00 position RIGHT breast with trabecular thickening extending to the nipple. Ultrasound described below. LEFT breast is unchanged and unremarkable ULTRASOUND BREAST RIGHT TECHNIQUE: Ultrasound right breast focused area of concern. CLINICAL INFORMATION: right breast pain FINDINGS: Ultrasound RIGHT breast at the 7 and 8:00 position 3 cm from the nipple. Skin thickening with scatter ed areas of subcutaneous fluid and edema. A few small scattered pockets of fluid the largest measurin g 1.1 x 0.7 x 1.5 cm. Other smaller pockets of fluid mainly subcentimeter in size in this region. Rec ommend interval follow-up after completion of antibiotics in 4-6 weeks to ensure resolution of these small collections. No large drainable abscess. Enlarged intramammary lymph node at the 8:00 position 4 cm from the nipple with cortical thickening l ikely reactive MM/[place] [id number] IMPRESSION: BI-RADS: 2-Benign FOLLOW UP: See Report Recommend interval follow-up RIGHT breast ultrasound 4-6 weeks after completion of antibiotics to ensure resolution of the RIGHT breast fluid and infection. R ecommend continued antibiotic treatment.
--- NOTE | 2023-02-24 14:45 | US_ITS ---
WS: [id number] BILATERAL 3D TOMOSYNTHESIS DIGITAL DIAGNOSTIC MAMMOGRAPHY WITH CAD CLINICAL INFORMATION: right breast pain HISTORY: Red and swollen breast. Currently on antibiotics and improving but not resolved. COMPARISON: 2015 TECHNIQUE: Bilateral CC, MLO, and ML views. FINDINGS: Scattered fibroglandular densities bilaterally. Vascular calcification. A few tiny incidental punctat e calcifications. A few prominent intramammary lymph nodes RIGHT breast. Increased density in the are a of concern near the 7:00 position RIGHT breast with trabecular thickening extending to the nipple. Ultrasound described below. LEFT breast is unchanged and unremarkable ULTRASOUND BREAST RIGHT TECHNIQUE: Ultrasound right breast focused area of concern. CLINICAL INFORMATION: right breast pain FINDINGS: Ultrasound RIGHT breast at the 7 and 8:00 position 3 cm from the nipple. Skin thickening with scatter ed areas of subcutaneous fluid and edema. A few small scattered pockets of fluid the largest measurin g 1.1 x 0.7 x 1.5 cm. Other smaller pockets of fluid mainly subcentimeter in size in this region. Rec ommend interval follow-up after completion of antibiotics in 4-6 weeks to ensure resolution of these small collections. No large drainable abscess. Enlarged intramammary lymph node at the 8:00 position 4 cm from the nipple with cortical thickening l ikely reactive US/US breast RT limited* [id number] IMPRESSION: BI-RADS: 2-Benign FOLLOW UP: See Report Recommend interval follow-up RIGHT breast ultrasound 4-6 weeks after completion of antibiotics to ensure resolution of the RIGHT breast fluid and infection. R ecommend continued antibiotic treatment.
== END 2023-02-24 14:00 | disposition home or self-care (01) ==
LOC: RAD 14:05
PROVIDERS: PCP Nurse Practitioner Family; Visit Provider Nurse Practitioner Family
DX: N64.4 Mastodynia (principal)
CPT/HCPCS: 76642; 77062; G0279

== ENCOUNTER 2023-03-04 22:09 | Emergency (ER) | payer MEDICARE, MEDICAID, SELFPAY ==
[2023-03-04] VITALS (14 sets, daily range): BP systolic 105–122; BP diastolic 56–82; PULSE 75; RESP 20; TEMP 36.7; O2SAT 86–94; BMI 52.7
--- NOTE | 2023-03-04 22:18 | W.ED.ABDPA2 ---
HPI - Abdominal Pain General: Chief Complaint: Abdominal Pain Stated Complaint: abdomen pain Time Seen by Provider: 03/04/23 22:17 History of Present Illness: Ms. Mathew is a 48-year-old lady with complex past medical history including obesity, GERD, diabetes, back pain, fibromyalgia, hypertension, hyperlipidemia presenting to the emergency department for flank and abdominal pain. She reports mild intermittent symptoms last night which resolved however returned starting this morning. Right lower quadrant and right flank pain associated with nausea and vomiting. Denies changes in bowel movements or urination. Overall course of symptoms has worsened. Intensity is moderate to severe. No other specific changes in health, exacerbating, or alleviating factors identified. Onset (ago): day(s) Pain Consistency: intermittent Location: RLQ and R flank Quality: sharp Exacerbating factors: nothing Relieving factors: nothing Associated Symptoms: Reports nausea and vomiting Review of Systems General: Reports: 10 or more systems reviewed and unremarkable except in HPI and below GI: Reports: nausea and vomiting PFSH ED PFSH: Medical History Acid reflux Asthma Diabetes mellitus Exertional dyspnea Fibromyalgia Insomnia Mixed hyperlipidemia Nicotine abuse OCD (obsessive compulsive disorder) PAULINA (obstructive sleep apnea) TMJ disease Surgical History History of delivery History of cholecystectomy History of hysterectomy Family History Father Emphysema lung Myocardial infarct Mother Stroke Multiple sclerosis Social History Smoking and tobacco status: current every day smoker Alcohol intake: current Alcohol intake frequency: holidays/special occasions only Marital status: Physical Exam Const: COMMON NORMALS: alert GENERAL APPEARANCE: cooperative and well developed HENMT: COMMON NORMALS: normocephalic and atraumatic HEAD & SCALP: normocephalic and atraumatic Eye: COMMON NORMALS: conjunctivae normal CONJUNCTIVA: Yes conjunctivae normal SCLERA: sclerae normal Neck/C-Spine: COMMON NORMALS: supple GENERAL: Yes trachea midline Resp: COMMON NORMALS: clear to auscultation bilaterally EFFORT & INSPECTION: Yes able to speak in complete sentences AUSCULTATION: clear to auscultation bilaterally Cardio: COMMON NORMALS: regular rate and regular rhythm RATE: regular rate RHYTHM: regular rhythm GI: COMMON NORMALS: Soft to palpation PALPATION: Yes Soft to palpation, Yes Tenderness to palpation present (GI), No Guarding due to palpation present (GI) and No Rigid due to palpation Extremity: GENERAL: Yes normal exam except as noted and No edema Neuro: COMMON NORMALS: moves all extremities SENSORIUM/ORIENTATION: Yes alert and No Orientation impaired Psych: COMMON NORMALS: mental status grossly normal and Normal thought process present THOUGHT PROCESS: Normal thought process present Course Vital Signs: Vital signs: Vital Signs Temperature 98.1 F 03/04/23 22:11 Pulse Rate 76 03/05/23 01:22 Respiratory Rate 18 03/05/23 01:22 Blood Pressure 134/70 03/05/23 01:22 Pulse Oximetry 93 03/05/23 01:22 Oxygen Delivery Me thod Nasal Cannula 03/05/23 01:09 Oxygen Flow Rate 2 03/05/23 01:09 MDM - Abdominal Pain Medical Decision Making 48-year-old lady presenting with abdominal symptoms. Abdominal tenderness palpation without evidence of acute surgical abdomen. Labs with no significant hematologic abnormalities. Metabolic panel with likely dehydration. There is hyperglycemia without evidence of DKA. No UTI. CT demonstrates hepatic steatosis and anasarca, incidental findings discussed with patient. Overall no clear etiology of symptoms identified. During ED course patient improved with morphine and antiemetic. The results of ED evaluation were discussed with the patient including prescriptions and/or symptomatic cares (if applicable) including appropriate and responsible use, followup plan, and return precautions. The patient verbalized understanding and felt safe for discharge. Medical Records I reviewed the patient's medical records. Lab Data I reviewed the patient's lab results. 03/04/23 22:54 03/04/23 22:54 Labs/Radiology: Radiology Impressions Abdomen/Pelvis CT 03/04/23 23:33 IMPRESSION: 1. Hepatic steatosis. 2. Cholecystectomy. 3. Anasarca. Laboratory Results WBC 10.0 10^3/uL (4.0-10.0) 03/04/23 22:54 RBC 4.33 10^6/uL (4.1-5.3) 03/04/23 22:54 Hgb 12.2 g/dL (11.5-15.3) 03/04/23 22:54 Hct 38.1 % (37.0-47.0) 03/04/23 22:54 MCV 88.0 fl (81-99) 03/04/23 22:54 MCH 28.2 pg (28.0-34.0) 03/04/23 22:54 MCHC 32.0 g/dL (30.0-36.0) 03/04/23 22:54 RDW 14.1 % (12.1-15.1) 03/04/23 22:54 Plt Count 257 10^3/cmm (130-400) 03/04/23 22:54 MPV 11.2 fL (7.4-10.4) H 03/04/23 22:54 Neut % (Auto) 61.4 % 03/04/23 22:54 Lymph % (Auto) 29.4 % 03/04/23 22:54 Andrews % (Auto) 6.5 % 03/04/23 22:54 Eos % (Auto) 1.5 % 03/04/23 22:54 Baso % (Auto) 0.5 % 03/04/23 22:54 Neut # (Auto) 6.13 10^3/uL (1.8-7.7) 03/04/23 22:54 Lymph # (Auto) 2.9 10^3/uL (0.8-4.8) 03/04/23 22:54 Andrews # (Auto) 0.7 10^3/uL (0.2-0.9) 03/04/23 22:54 Eos # (Auto) 0.2 10^3/uL (0.0-0.8) 03/04/23 22:54 Baso # (Auto) 0.1 10^3/uL (0.0-0.1) 03/04/23 22:54 Nucleated RBC % (auto) 0 % 03/04/23:54 Nucleated RBCs # 0.0 /100WBC 03/04/23 22:54 Sodium 133 mmol/L (136-145) L 03/04/23 22:54 Potassium 3.9 mmol/L (3.5-5.1) 03/04/23 22:54 Chloride 96 mmol/L (98-107) L 03/04/23 22:54 Carbon Dioxide 28 mmol/L (22-29) 03/04/23 22:54 Anion Gap 12.9 (5-19) 03/04/23 22:54 BUN 8 mg/dL (6-20) 03/04/23 22:54 Creatinine 0.6 mg/dL (0.5-0.9) 03/04/23 22:54 GFR Calculation 107.2 mL/min (90-130) 03/04/23 22:54 Glucose 308 mg/dL (65-115) H 03/04/23 22:54 POC Glucose 188 mg/dL (70-110) H 03/04/23 22:53 Calculated Osmolality 286 mOsm/kg (285-295) 03/04/23 22:54 Lactate 2.1 mmol/L (0.5-2.2) 03/04/23 22:54 Calcium 9.0 mg/dL (8.5-10.5) 03/04/23 22:54 Total Bilirubin 0.3 mg/dL (0.15-1.2) 03/04/23 22:54 AST 11 U/L (0-32) 03/04/23 22:54 ALT 17 U/L (0-33) 03/04/23 22:54 Alkaline Phosphatase 92 U/L (35-105) 03/04/23 22:54 Total Protein 7.1 g/dL (6.6-8.7) 03/04/23 22:54 Albumin 3.3 g/dL (3.5-5.2) L 03/04/23 22:54 Globulin 3.8 g/dL (1.3-4.6) 03/04/23 22:54 Lipase 34 U/L (13-60) 03/04/23 22:54 Urine Color Yellow (Yellow) 03/04/23 23:49 Urine Appearance Clear (CLEAR) 03/04/23 23:49 Urine pH 6 (5-7) 03/04/23 23:49 Ur Specific Mary Alice 1.020 (1.005-1.030) 03/04/23 23:49 Urine Protein Neg (Negative) 03/04/23 23:49 Urine Glucose (UA) 2+ (Normal) H 03/04/23 23:49 Urine Ketones Negative (Negative) 03/04/23 23:49 Urine Blood Neg (Negative) 03/04/23 23:49 Urine Nitrate Negative (Negative) 03/04/23 23:49 Urine Bilirubin Neg (Negative) 03/04/23 23:49 Urine Urobilinogen Norm mg/dL (Negative) 03/04/23 23:49 Ur Leukocyte Esterase Negative (Negative) 03/04/23 23:49 Discharge Plan Discharge Patient Disposition: Home Clinical Impression: Acute flank pain, Abdominal pain Condition: Stable Prescriptions: New ondansetron 4 mg tablet,disintegrating 4 mg PO Q8H PRN (Reason: nausea and vomiting) Qty: 15 0RF dicyclomine 10 mg capsule 10 mg PO TID PRN (Reason: abdominal pain) Qty: 20 0RF No Action (DME) glucose meter See Rx Instructions .Route .MEDSUPPLY Qty: 1 0RF Rx Instructions: [email or web address] francis glucose meter. ondansetron HCl 4 mg tablet 4 mg PO Q6H PRN (Reason: nausea and vomiting) Qty: 90 0RF sucralfate [Carafate] 1 gram tablet 1 g PO BID 30 Days Qty: 60 1RF budesonide-formoterol [Symbicort] 160-4.5 mcg/actuation HFA aerosol inhaler 2 puff inhalation Q12H Qty: 10.2 11RF albuterol sulfate 90 mcg/actuation HFA aerosol inhaler 2 puff inhalation Q6H PRN (Reason: Shortness Of Breath) Qty: 8.5 2RF Rx Instructions: inhale TWO puffs BY MOUTH EVERY 6 HOURS NEEDED FOR SHORTNESS OF BREATH atorvastatin 80 mg tablet 80 mg PO DAILY 30 Days Qty: 30 3RF albuterol sulfate 2.5 mg /3 mL (0.083 %) solution for nebulization 2.5 mg INHALATION Q4H PRN (Reason: shortness of breath or wheezing) Qty: 180 5RF cetirizine 10 mg tablet 10 mg PO DAILY 90 Days Qty: 90 1RF Rx Instructions: TAKE ONE TABLET BY MOUTH EVERY DAY cholecalciferol (vitamin D3) 50 mcg (2,000 unit) capsule 50 mcg PO DAILY Qty: 90 1RF citalopram 40 mg tablet 40 mg PO DAILY 30 Days Qty: 30 3RF cyclobenzaprine 10 mg tablet 10 mg PO TID PRN (Reason: muscle spasm) 30 Days Qty: 90 1RF fluticasone propionate 50 mcg/actuation spray,suspension 2 spray intranasal DAILY@0900 Qty: 16 3RF furosemide 40 mg tablet 40 mg PO DAILY 90 Days Qty: 90 1RF gabapentin 400 mg capsule 400 mg PO TID 90 Days Qty: 270 1RF glipizide 10 mg tablet 10 mg PO BID 90 Days Qty: 180 1RF Lantus Solostar U-100 Insulin 100 unit/mL (3 mL) insulin pen 55 unit SUBCUT DAILY Qty: 15 3RF montelukast 10 mg tablet 10 mg PO DAILY@0900 90 Days Qty: 90 1RF pantoprazole [Protonix] 40 mg tablet,delayed release (DR/EC) 40 mg PO DAILY 90 Days Qty: 90 1RF potassium chloride 10 mEq capsule, extended release 10 meq PO DAILY 90 Days Qty: 90 1RF trazodone 150 mg tablet 150 mg PO DAILY Qty: 90 1RF Ozempic 0.25 mg or 0.5 mg(2 mg/1.5 mL) pen injector 0.5 mg SUBCUT .Q7days 28 Days Qty: 1.5 0RF cephalexin 500 mg capsule 500 mg PO TID Qty: 30 0RF fluconazole [Diflucan] 150 mg tablet 150 mg PO DAILY 3 Days Qty: 3 0RF (DME) Nebulizer tubing/supplies See Rx Instructions .Route .MEDSUPPLY Qty: 1 3RF Rx Instructions: As directed OneTouch Ultra Test Strip See Rx Instructions .ROUTE .COMPLEX Qty: 50 5RF Dose Instruction: As directed Rx Instructions: As directed testing once daily azelastine 137 mcg (0.1 %) aerosol,spray 2 spray intranasal BID Qty: 30 3RF Rx Instructions: administer into each nostril (DME) C-Pap Supplies See Rx Instructions .Route .MEDSUPPLY Qty: 1 0RF Rx Instructions: As directed (DME) pen needle, diabetic [UltiCare Pen Needle] 31 gauge x 1/4 needle See Rx Instructions .ROUTE .COMPLEX Qty: 100 3RF Dose Instruction: USE TWICE DAILY Rx Instructions: USE TWICE DAILY Discharge Orders: Discharge ED (Routine); Ordered 03/05/23 Ordered By: Kaden George Referrals: Brianna Luna, [facility] [Primary Care Provider] - Discharge Diet: Advance as tolerated and Clear Liquid Discharge Activity: Increase activity as tolerated Patient Instructions: Dehydration (ED), Abdominal Pain (ED), Opioid Safety Activity Restrictions/Additional Instructions: Thank you for visiting the emergency department. You were seen antibiotic for abdominal pain and flank pain. The exact cause of your symptoms is unclear but does not appear to need hospitalization at this time. You are found of mild dehydration as discussed. Please ensure that you are staying hydrated and start with clear liquid diet and advance to bland diet as tolerated. You may use [id number] medications such as acetaminophen and ibuprofen for pain however please do not exceed the daily recommended dosage as listed on the packaging and please keep in mind that many namebrand medications contain the same active ingredients. Please avoid these medications if previously instructed to do so by another physician due to other underlying medical condition. I will prescribe antinausea medication. Follow-up with a primary care provider. Return to the emergency department for worsening or uncontrolled symptoms or anything else that you are concerned about and feel needs emergency department evaluation. Coding Level of Care Code ED [employer] for Mathew Sandoval
[2023-03-04] MEDS: morphine 4 mg/mL SDV 1 mL IVP (22:49)
[2023-03-04] MEDS: ondansetron 2 mg/ML SDV 2 mL 4 MG IVP (22:49)
[2023-03-04 23:09] LABS: Basophils # 0.1 10^3/uL (0.0-0.1); Basophils % 0.5 %; Eosinophils # 0.2 10^3/uL (0.0-0.8); Eosinophils % 1.5 %; Hematocrit 38.1 % (37.0-47.0); Hemoglobin 12.2 g/dL (11.5-15.3); Lymphocytes # 2.9 10^3/uL (0.8-4.8); Lymphocytes % 29.4 %; Mean Corpuscular Hemoglobin 28.2 pg (28.0-34.0); Mean Platelet Volume 11.2 fL (7.4-10.4); Monocytes # 0.7 10^3/uL (0.2-0.9); Monocytes % 6.5 %; Neutrophils # 6.13 10^3/uL (1.8-7.7); Neutrophils % 61.4 %; Nucleated Red Blood Cells % 0 %; Platelet Count 257 10^3/cmm (130-400); Red Blood Count 4.33 10^6/uL (4.1-5.3); Red Cell Distribution Width 14.1 % (12.1-15.1)
[2023-03-04 23:20] LABS: Alanine Aminotransferase 17 U/L (0-33); Albumin Level 3.3 g/dL (3.5-5.2); Alkaline Phosphatase 92 U/L (35-105); Anion Gap 12.9 (5-19); Aspartate Amino Transferase 11 U/L (0-32); Blood Urea Nitrogen 8 mg/dL (6-20); Carbon Dioxide 28 mmol/L (22-29); Chloride 96 mmol/L (98-107); Globulin 3.8 g/dL (1.3-4.6); Glomerular Filtration Rate 107.2 mL/min (90-130); Glucose 308 mg/dL (65-115); Lipase 34 U/L (13-60); Osmolality Calculated 286 mOsm/kg (285-295); Potassium 3.9 mmol/L (3.5-5.1); Sodium 133 mmol/L (136-145); Total Bilirubin 0.3 mg/dL (0.15-1.2); Total Protein 7.1 g/dL (6.6-8.7)
[2023-03-04 23:21] LABS: Lactate (Lactic Acid level) 2.1 mmol/L (0.5-2.2)
--- NOTE | 2023-03-04 23:33 | CTR_ITS ---
PROCEDURE INFORMATION: Exam: CT Abdomen And Pelvis Without Contrast Exam date and time: 03/05/2023 12:09 AM Age: 48 years old Clinical indication: Abdominal pain; Localized; Right; Prior surgery; Surgery type: Gb. Hysterectomy. Csection. Patient HX: C/O RT flank/rlq pain. ; Additional info: R flank/abd pain TECHNIQUE: Imaging protocol: Computed tomography of the abdomen and pelvis without contrast. Radiation optimization: All CT scans at this facility use at least one of these dose optimization techniques: automated exposure control; mA and/or kV adjustment per patient size (includes targeted exams where dose is matched to clinical indication); or iterative reconstruction. REPORTING DATA: Count of CT and Cardiac NM exams in prior 12 months: This patient has received [address] and 0 known cardiac nuclear medicine studies in the 12 months prior to the current study. COMPARISON: CT abdomen pelvis w con* [id number] 01/30/2021 1:56 PM RADIATION DOSE METRICS: Total DLP (mGy-cm): 1176.61 FINDINGS: Liver: Hepatic steatosis. Gallbladder and bile ducts: Cholecystectomy. Pancreas: Normal. No ductal dilation. Spleen: Normal. No splenomegaly. Adrenal glands: Normal. No mass. Kidneys and ureters: Normal. No hydronephrosis. Stomach and bowel: Unremarkable. No obstruction. No mucosal thickening. Appendix: No evidence of appendicitis. Intraperitoneal space: Unremarkable. No free air. No significant fluid collection. Vasculature: Unremarkable. No abdominal aortic aneurysm. Lymph nodes: Unremarkable. No enlarged lymph nodes. Urinary bladder: Unremarkable as visualized. Reproductive: Unremarkable as visualized. Bones/joints: Unremarkable. No acute fracture. Soft tissues: Anasarca. CT/CT kidney stone [id number] IMPRESSION: 1. Hepatic steatosis. 2. Cholecystectomy. 3. Anasarca.
[2023-03-05] VITALS: BP 105/56; O2SAT 88
[2023-03-05 00:04] LABS: Add Urine Microscopic? NO; Charge for UA Resulting for Rev
[2023-03-05 00:05] VITALS: BP 105/56; O2SAT 94
[2023-03-05 00:09] LABS: Bilirubin Urine Neg (Negative); Blood Urine Neg (Negative); Glucose Urine UA 2+ (Normal); Ketones Urine Negative (Negative); Leukocyte Esterase Urine Negative (Negative); Nitrate Urine Negative (Negative); Protein Urine Neg (Negative); Urine Appearance Clear (CLEAR); Urine Color Yellow (Yellow); Urobilinogen Urine Norm (Negative); pH Urine 6 (5-7)
[2023-03-05 00:10] VITALS: BP 105/56
[2023-03-05 01:09] VITALS: BP 134/70; PULSE 74; O2SAT 97
[2023-03-05 01:22] VITALS: BP 134/70; PULSE 76; RESP 18; O2SAT 93
[2023-03-06 08:55] LABS: Glucose Point of Care 188 mg/dL (70-110)
== END 2023-03-05 01:23 | disposition home or self-care (01) ==
PROVIDERS: Emergency Provider Emergency Medicine; PCP Nurse Practitioner Family
DX: R10.9 Unspecified abdominal pain (principal); Z79.4 Long term (current) use of insulin; Z79.84 Long term (current) use of oral hypoglycemic drugs; F17.210 Nicotine dependence, cigarettes, uncomplicated; E11.9 Type 2 diabetes mellitus without complications; E78.2 Mixed hyperlipidemia; R60.1 Generalized edema; K76.0 Fatty (change of) liver, not elsewhere classified
CPT/HCPCS: 36416; 74176; 80053; 81003; 82962; 83605; 83690; 85025; 87040; 96374; 96375; 99284; J2270; J2405

== ENCOUNTER 2023-06-04 13:19 | Outpatient (CLI) | payer MEDICARE, MEDICAID, SELFPAY ==
--- NOTE | 2023-06-04 13:45 | USCV_ITS ---
Jaylin Mathew Age: 48 Gender: F : 1975 Exam Date: 06/04/2023 13:37 Ordering Phys: Brianna Luna NP Technologist: Exam Location: [facility] Indication: chest pain BP: 120 / 70 HR: 78 Rhythm: Sinus Technical Quality: Adequate MEASUREMENTS (Male / Female) Normal Values 2D ECHO LV Diastolic Diameter PLAX 4.7 cm 4.2 - 5.9 / 3.9 - 5.3 cm LV Systolic Diameter PLAX 2.9 cm IVS Diastolic Thickness 1.1 cm 0.6 - 1.0 / 0.6 - 0.9 cm IVS Systolic Thickness 0.8 cm LVPW Diastolic Thickness 1.2 cm 0.6 - 1.0 / 0.6 - 0.9 cm LVPW Systolic Thickness 2.8 cm LVOT Diameter 2.1 cm LV Ejection Fraction 2D Teich 48.9 % LV Ejection Fraction MOD 2C 64.7 % LV Ejection Fraction 2C AL 66.4 % LA Diameter 3.6 cm IVC Diameter 1.4 cm M-MODE Aortic Annulus Diameter 2.9 cm LA Ao Ratio MM 1.2 MV E Point Septal Separation 1.4 cm DOPPLER AV Peak Velocity 152.0 cm/s LVOT Peak Velocity 87.0 cm/s AV Area Cont Eq vti 2.4 cm squared AV Area Cont Eq pk 2.0 cm squared MV Area PHT 5.0 cm squared Mitral E to A Ratio 1.1 MV E' Velocity 57.0 cm/s Mitral E to MV E' Ratio 12.3 Mitral E to LV E' Lateral Ratio 12.8 Mitral E to LV E' Septal Ratio 11.9 TR Peak Velocity 123.0 cm/s TR Peak Gradient 6.1 mmHg TV Peak E Velocity 131.0 cm/s Right Atrial Pressure 3.0 mmHg Pulmonary Artery Systolic Pressu 9.1 mmHg RV Acceleration Time 0.2 s FINDINGS Left Ventricle Normal left ventricular size, systolic function and wall thickness, with no regional wall motion abnormalities. Normal left ventricular wall thickness. Normal diastolic filling pattern. Left ventricular ejection fraction is estimated at 60 %. Right Ventricle The right ventricle is normal in size and function. Right Atrium The right atrium is normal in size. Left Atrium The left atrium is normal in size. Mitral Valve Structurally normal mitral valve without significant stenosis or prolapse. There is no mitral regurgitation. Aortic Valve Structurally normal aortic valve without significant sclerosis or stenosis. There is no aortic regurgitation. Tricuspid Valve Structurally normal tricuspid valve without significant stenosis or regurgitation. Pulmonary artery systolic pressure is normal. Pulmonic Valve Pulmonic valve not well visualized. Pericardium Normal pericardium without effusion. Aorta Normal ascending aorta dimension. IVC The inferior vena cava appears normal. CONCLUSIONS Normal transthoracic echocardiogram. There are no prior echocardiogram studies to compare. Dr. Volodymyr Bloom MD (Electronically Signed) Final Date: 04 June 2023 15:59 S
== END 2023-06-04 13:20 | disposition home or self-care (01) ==
PROVIDERS: PCP Nurse Practitioner Family; Visit Provider Nurse Practitioner Family
DX: R55 Syncope and collapse (principal); R07.9 Chest pain, unspecified; R42 Dizziness and giddiness
CPT/HCPCS: 93306

== ENCOUNTER → 2023-07-22 14:51 | Outpatient (BNVA) | payer MEDICARE, MEDICAID, SELFPAY | PROVIDERS: PCP Nurse Practitioner Family; Visit Provider Nurse Practitioner Family | DX: E55.9 Vitamin D deficiency, unspecified (principal); K21.9 Gastro-esophageal reflux disease without esophagitis; E11.65 Type 2 diabetes mellitus with hyperglycemia; M79.7 Fibromyalgia; E78.2 Mixed hyperlipidemia; G47.33 Obstructive sleep apnea (adult) (pediatric) | CPT/HCPCS: 80053; 80061; 82306; 83036; 84443 ==

== ENCOUNTER → 2023-08-18 12:52 | Outpatient (BNVA) | payer MEDICARE, MEDICAID, SELFPAY | PROVIDERS: PCP Nurse Practitioner Family; Referring Provider Nurse Practitioner Family; Visit Provider Surgery | DX: L02.214 Cutaneous abscess of groin (principal) | CPT/HCPCS: 99203; 99214 ==

== ENCOUNTER 2023-08-28 10:45 | Emergency (ER) | payer MEDICARE, MEDICAID, SELFPAY ==
[2023-08-28 10:45] VITALS: BP 174/56; PULSE 75; RESP 18; TEMP 36.8; O2SAT 97; BMI 47.8
--- NOTE | 2023-08-28 10:52 | XR_ITS ---
WS: [id number] EXAMINATION: XR chest 1V portable [id number] REASON FOR EXAM: choking episode COMPARISON: 08/14/2021 ORDER DATE: 08/28/2023 11:00 AM TECHNIQUE: A single, portable frontal chest x-ray was obtained. X-RAY FINDINGS: The lungs are clear. Pleural spaces are clear. No pleural effusions or pneumothorax. Cardiomediastinal silhouette is normal. No evidence for pulmonary edema. Soft tissue and osseous structures are unremarkable. No tubes or lines are present. IMPRESSION: Unremarkable frontal portable chest x-ray.
--- NOTE | 2023-08-28 10:54 | W.ED.SOB ---
HPI - SOB/Dyspnea General: Chief Complaint: Shortness of Breath/Dyspnea Stated Complaint: sob, choked Time Seen by Provider: 08/28/23 10:46 History of Present Illness: HPI Narrative: This 48-year-old female was brought in by EMS for evaluation of his choking episode that occurred prior to arrival. Patient was eating a bowl of cereal this morning and she had milk in her mouth. When she tried to swallow it, it went down the wrong pipe . Patient started choking and coughing. She got to the point where she could hardly breathe. So, 911 was called. EMS reports that they gave her 1 nitro and a breathing treatment prior to ER arrival. Here in the ER, patient is at her baseline with no shortness of breath. Oxygen saturation is normal. Associated symptoms: Deny chest pain or lightheadedness Review of Systems Const: Denies: chills, body aches or change in appetite Eyes: Denies: change in vision or eye discharge ENMT: Denies: throat pain, dental pain or nasal discharge Card: Denies: chest pain or lightheadedness Resp: Reports: other (choking and coughing) : Denies: dysuria Musc: Denies: neck pain or back pain Neuro: Denies: headache(s) or weakness in extremities Psych: Denies: depression Carmelo/Lymph: Denies: easy bruising All/Imm: Denies: urticaria, tongue swelling or facial swelling PFSH ED PFSH: Medical History Acid reflux Asthma Diabetes mellitus Exertional dyspnea Fibromyalgia Insomnia Mixed hyperlipidemia Nicotine abuse OCD (obsessive compulsive disorder) PAULINA (obstructive sleep apnea) TMJ disease Surgical History History of delivery History of cholecystectomy History of hysterectomy Family History Father Emphysema lung Myocardial infarct Mother Stroke Multiple sclerosis Social History Smoking and tobacco status: current every day smoker Alcohol intake: current Alcohol intake frequency: holidays/special occasions only Marital status: Physical Exam Const: COMMON NORMALS: no acute distress, patient oriented x3, no limitations and alert HENMT: COMMON NORMALS: normocephalic HEAD & SCALP: normocephalic Eye: COMMON NORMALS: EOMs intact bilaterally Neck/C-Spine: COMMON NORMALS: full ROM and supple Chest: COMMONS NORMALS: normal inspection of the chest Resp: COMMON NORMALS: normal respiratory effort, No retractions, No use of accessory muscles and clear to auscultation bilaterally AUSCULTATION: clear to auscultation bilaterally Cardio: COMMON NORMALS: regular rate, regular rhythm and No murmurs present (Cardio) RATE: regular rate RHYTHM: regular rhythm GI: COMMON NORMALS: Normal to inspection, nondistended, normoactive bowel sounds present and non-tender : COMMON NORMALS: Yes no CVA tenderness BLADDER/KIDNEY EXAM: Yes no CVA tenderness Back/Pelvis: COMMON NORMALS: no CVA tenderness and no thoracic nor lumbar tenderness Extremity: GENERAL: Yes normal exam except as noted Neuro: COMMON NORMALS: patient oriented x3 and no focal motor deficits SENSORIUM/ORIENTATION: Yes alert Psych: COMMON NORMALS: mental status grossly normal and cooperative Course Vital Signs: Vital signs: Vital Signs Temperature 98.3 F 08/28/23 10:45 Pulse Rate 75 08/28/23 10:45 Respiratory Rate 18 08/28/23 10:45 Blood Pressure 149/64 08/28/23 11:21 Pulse Oximetry 96 08/28/23 11:21 Oxygen Delivery Me thod Room Air 08/28/23 11:21 MDM - SOB/Dyspnea Medical Decision Making Medical decision making: History as above. The choking episode occurred when patient tried to swallow milk in her mouth and she felt it went the wrong way. On ER arrival, she was already back to her baseline and she remained so throughout her stay. Chest x-ray is unremarkable and completed blood tests are unremarkable too. There is no indication to admit her or to embark on any intervention. She was reassured and discharged home. She was however advised to return if she develops any new or worsening symptoms. Patient verbalized understanding and agrees with the plan. Lab Data 08/28/23 11:05 08/28/23 11:05 Labs/Radiology: Laboratory Results WBC 10.78 10^3/uL (3.29-11.43) 08/28/23 11:05 RBC 3.99 10^6/uL (3.85-5.65) 08/28/23 11:05 Hgb 11.60 g/dL (11.27-16.99) 08/28/23 11:05 Hct 35.4 % (36-47) L 08/28/23 11:05 MCV 88.7 fl (85-98) 08/28/23 11:05 MCH 29.1 pg (27-33) 08/28/23 11:05 MCHC 32.8 g/dL (30-55) 08/28/23 11:05 RDW 14.3 % (12.1-15.1) 08/28/23 11:05 Plt Count 206 10^3/cmm (157-399) 08/28/23 11:05 MPV 11.1 fL (7.4-10.4) H 08/28/23 11:05 Neut % (Auto) 74.4 % 08/28/23 11:05 Lymph % (Auto) 17.9 % 08/28/23 11:05 Hartley % (Auto) 5.2 % 08/28/23 11:05 Eos % (Auto) 0.6 % 08/28/23 11:05 Baso % (Auto) 0.4 % 08/28/23 11:05 Neut # (Auto) 8.03 10^3/uL (1.8-7.7) H 08/28/23 11:05 Lymph # (Auto) 1.9 10^3/uL (0.8-4.8) 08/28/23 11:05 Hartley # (Auto) 0.6 10^3/uL (0.2-0.9) 08/28/23 11:05 Eos # (Auto) 0.1 10^3/uL (0.0-0.8) 08/28/23 11:05 Baso # (Auto) 0.0 10^3/uL (0.0-0.1) 08/28/23 11:05 Nucleated RBC % (auto) 0 % 08/28/23 11:05 Nucleated RBCs # 0.0 /100WBC 08/28/23 11:05 Sodium 132 mmol/L (136-145) L 08/28/23 11:05 Potassium 4.2 mmol/L (3.5-5.1) 08/28/23 11:05 Chloride 96 mmol/L (98-107) L 08/28/23 11:05 Carbon Dioxide 27 mmol/L (22-29) 08/28/23 11:05 Anion Gap 13.2 (5-19) 08/28/23 11:05 BUN 7 mg/dL (6-20) 08/28/23 11:05 Creatinine 0.6 mg/dL (0.5-0.9) 08/28/23 11:05 GFR Calculation 107.2 mL/min (90-130) 08/28/23 11:05 Glucose 290 mg/dL (65-115) H 08/28/23 11:05 Calculated Osmolality 283 mOsm/kg (285-295) L 08/28/23 11:05 Calcium 8.8 mg/dL (8.5-10.5) 08/28/23 11:05 Total Bilirubin 0.3 mg/dL (0.15-1.2) 08/28/23 11:05 AST 8 U/L (0-32) 08/28/23 11:05 ALT 10 U/L (0-33) 08/28/23 11:05 Alkaline Phosphatase 88 U/L (35-105) 08/28/23 11:05 Total Protein 6.9 g/dL (6.6-8.7) 08/28/23 11:05 Albumin 3.5 g/dL (3.5-5.2) 08/28/23 11:05 Globulin 3.4 g/dL (1.3-4.6) 08/28/23 11:05 All radiology interpretation(s) finalized by discharge Discharge Plan Discharge Patient Disposition: Home Clinical Impression: Choking episode Condition: Stable Prescriptions: No Action (DME) glucose meter See Rx Instructions .Route .MEDSUPPLY Qty: 1 0RF Rx Instructions: Freestyle francis glucose meter. cyclobenzaprine 10 mg tablet 10 mg PO TID PRN (Reason: muscle spasm) 30 Days Qty: 90 1RF Ozempic 1 mg/dose (4 mg/3 mL) pen injector 1 mg SUBCUT .weekly Qty: 3 2RF simethicone [Gas Relief (simethicone)] 180 mg capsule 180 mg PO BID PRN (Reason: abdominal distention) 30 Days Qty: 60 1RF (DME) Nebulizer tubing/supplies See Rx Instructions .Route .MEDSUPPLY Qty: 1 3RF Rx Instructions: As directed (DME) C-Pap Supplies See Rx Instructions .Route .MEDSUPPLY Qty: 1 0RF Rx Instructions: As directed (DME) OneTouch Ultra Test Strip See Rx Instructions .ROUTE .COMPLEX Qty: 50 0RF Dose Instruction: USE DIRECTED TO test one daily Rx Instructions: USE DIRECTED TO test one daily albuterol sulfate 2.5 mg /3 mL (0.083 %) solution for nebulization See Rx Instructions .ROUTE .COMPLEX Qty: 180 0RF Dose Instruction: inhale THE contents of ONE vial PER NEBULIZER EVERY 4 HOURS NEEDED FOR SHORTNESS OF BREATH OR wheezing Rx Instructions: inhale THE contents of ONE vial PER NEBULIZER EVERY 4 HOURS NEEDED FOR SHORTNESS OF BREATH OR wheezing albuterol sulfate 90 mcg/actuation HFA aerosol inhaler See Rx Instructions .ROUTE .COMPLEX Qty: 8.5 0RF Dose Instruction: inhale 2 puffs BY MOUTH EVERY 6 HOURS NEEDED FOR SHORTNESS OF BREATH Rx Instructions: inhale 2 puffs BY MOUTH EVERY 6 HOURS NEEDED FOR SHORTNESS OF BREATH (DME) pen needle, diabetic [UltiCare Pen Needle] 31 gauge x 1/4 needle See Rx Instructions .ROUTE .COMPLEX Qty: 100 0RF Dose Instruction: USE TWICE DAILY Rx Instructions: USE TWICE DAILY furosemide 40 mg tablet 40 mg PO QAM atorvastatin 80 mg tablet 80 mg PO QPM potassium chloride 10 mEq capsule, extended release 10 meq PO QAM citalopram 40 mg tablet 40 mg PO QAM cetirizine 10 mg tablet 10 mg PO BEDTIME glipizide 10 mg tablet 10 mg PO BID gabapentin 400 mg capsule 400 mg PO TID pantoprazole 40 mg tablet,delayed release (DR/EC) 40 mg PO QPM montelukast 10 mg tablet 10 mg PO QAM azelastine 137 mcg (0.1 %) aerosol,spray 2 spray intranasal BID fluticasone propionate 50 mcg/actuation spray,suspension 1 spray intranasal QAM Symbicort 160-4.5 mcg/actuation HFA aerosol inhaler 2 inh inhalation Q12H Eladio Solostar U-100 Insulin 100 unit/mL (3 mL) insulin pen 55 unit SUBCUT DAILY cholecalciferol (vitamin D3) 50 mcg (2,000 unit) capsule 50 mcg PO QAM ondansetron 4 mg tablet,disintegrating 4 mg PO Q8H PRN (Reason: nausea and vomiting) Qty: 15 0RF dicyclomine 10 mg capsule 10 mg PO TID PRN (Reason: abdominal pain) Qty: 20 0RF Discharge Orders: Discharge ED (Routine); Ordered 08/28/23 Ordered By: Barry Schaefer Referrals: Brianna Luna RESIDENTIAL BUILDING INSPECTOR [Primary Care Provider] - Discharge Diet: Usual diet Discharge Activity: Resume usual activity Patient Instructions: Opioid Safety, Pain Management Activity Restrictions/Additional Instructions: Continue taking your usual home medications. Follow-up with your primary care physician as needed. Return if you develop any new or concerning symptoms. Coding Level of Care Code ED Plant Utilities Engineer for Mathew Sandoval
[2023-08-28 11:18] LABS: Basophils % 0.4 %; Eosinophils # 0.1 10^3/uL (0.0-0.8); Eosinophils % 0.6 %; Hematocrit 35.4 % (36-47); Lymphocytes # 1.9 10^3/uL (0.8-4.8); Lymphocytes % 17.9 %; Mean Corpuscular HGB Conc 32.8 g/dL (30-55); Mean Corpuscular Hemoglobin 29.1 pg (27-33); Mean Corpuscular Volume 88.7 fl (85-98); Mean Platelet Volume 11.1 fL (7.4-10.4); Monocytes # 0.6 10^3/uL (0.2-0.9); Monocytes % 5.2 %; Neutrophils # 8.03 10^3/uL (1.8-7.7); Neutrophils % 74.4 %; Nucleated Red Blood Cells % 0 %; Platelet Count 206 10^3/cmm (157-399); Red Blood Count 3.99 10^6/uL (3.85-5.65); Red Cell Distribution Width 14.3 % (12.1-15.1); White Blood Count 10.78 10^3/uL (3.29-11.43)
[2023-08-28 11:21] VITALS: BP 149/64; O2SAT 96
[2023-08-28 11:39] LABS: Alanine Aminotransferase 10 U/L (0-33); Albumin Level 3.5 g/dL (3.5-5.2); Alkaline Phosphatase 88 U/L (35-105); Anion Gap 13.2 (5-19); Aspartate Amino Transferase 8 U/L (0-32); Blood Urea Nitrogen 7 mg/dL (6-20); Calcium 8.8 mg/dL (8.5-10.5); Carbon Dioxide 27 mmol/L (22-29); Chloride 96 mmol/L (98-107); Globulin 3.4 g/dL (1.3-4.6); Glomerular Filtration Rate 107.2 mL/min (90-130); Glucose 290 mg/dL (65-115); Osmolality Calculated 283 mOsm/kg (285-295); Potassium 4.2 mmol/L (3.5-5.1); Sodium 132 mmol/L (136-145); Total Bilirubin 0.3 mg/dL (0.15-1.2); Total Protein 6.9 g/dL (6.6-8.7)
== END 2023-08-28 12:01 | disposition home or self-care (01) ==
PROVIDERS: Emergency Provider Family Medicine; PCP Nurse Practitioner Family
DX: T17.928A Food in respiratory tract, part unspecified causing other injury, initial encounter (principal); W44.F3XA Food entering into or through a natural orifice, initial encounter; Z79.4 Long term (current) use of insulin; Z79.84 Long term (current) use of oral hypoglycemic drugs; F17.210 Nicotine dependence, cigarettes, uncomplicated; E11.9 Type 2 diabetes mellitus without complications; E78.2 Mixed hyperlipidemia
CPT/HCPCS: 36415; 71045; 80053; 85025; 99284

== ENCOUNTER → 2023-10-27 11:55 | Outpatient (BNVA) | payer MEDICARE, MEDICAID, SELFPAY | PROVIDERS: PCP Nurse Practitioner Family; Visit Provider Nurse Practitioner Family | DX: E78.2 Mixed hyperlipidemia (principal); J45.41 Moderate persistent asthma with (acute) exacerbation; J30.2 Other seasonal allergic rhinitis; E11.65 Type 2 diabetes mellitus with hyperglycemia; J45.909 Unspecified asthma, uncomplicated; E55.9 Vitamin D deficiency, unspecified; F41.9 Anxiety disorder, unspecified; F32.A Depression, unspecified; M79.7 Fibromyalgia; R60.9 Edema, unspecified; G62.9 Polyneuropathy, unspecified; K21.9 Gastro-esophageal reflux disease without esophagitis; E87.6 Hypokalemia | CPT/HCPCS: 80053; 80061; 83036 ==

== ENCOUNTER → 2024-04-30 13:47 | Outpatient (BNVA) | payer MEDICARE, MEDICAID, SELFPAY | PROVIDERS: PCP Nurse Practitioner Family; Visit Provider Nurse Practitioner Family | DX: R30.0 Dysuria (principal); E11.65 Type 2 diabetes mellitus with hyperglycemia; E78.2 Mixed hyperlipidemia; N39.0 Urinary tract infection, site not specified; B37.9 Candidiasis, unspecified; J30.2 Other seasonal allergic rhinitis; J45.909 Unspecified asthma, uncomplicated; E55.9 Vitamin D deficiency, unspecified; F41.9 Anxiety disorder, unspecified; F32.A Depression, unspecified; M79.7 Fibromyalgia; R60.9 Edema, unspecified; G62.9 Polyneuropathy, unspecified; E11.9 Type 2 diabetes mellitus without complications; K21.9 Gastro-esophageal reflux disease without esophagitis; E87.6 Hypokalemia; R31.9 Hematuria, unspecified | CPT/HCPCS: 80053; 80061; 82043; 83036; 85025 ==

== ENCOUNTER → 2024-05-05 13:51 | Outpatient (BNVA) | payer MEDICARE, MEDICAID, SELFPAY | PROVIDERS: PCP Nurse Practitioner Family; Visit Provider Nurse Practitioner Family | DX: N39.0 Urinary tract infection, site not specified (principal); R31.9 Hematuria, unspecified; E11.65 Type 2 diabetes mellitus with hyperglycemia; Z11.3 Encounter for screening for infections with a predominantly sexual mode of transmission; R10.31 Right lower quadrant pain; A64 Unspecified sexually transmitted disease | CPT/HCPCS: 87086; 87491; 87591 ==

== ENCOUNTER → 2024-09-07 13:34 | Outpatient (BNVA) | payer MEDICARE, MEDICAID, SELFPAY | PROVIDERS: PCP Nurse Practitioner Family; Visit Provider Nurse Practitioner Family | DX: E11.65 Type 2 diabetes mellitus with hyperglycemia (principal); E78.2 Mixed hyperlipidemia | CPT/HCPCS: 80053; 80061; 83036; 84443; 85025 ==

== ENCOUNTER → 2024-10-11 14:51 | Outpatient (BNVA) | payer MEDICARE, MEDICAID, SELFPAY | PROVIDERS: PCP Nurse Practitioner Family; Visit Provider Nurse Practitioner Family | DX: M25.512 Pain in left shoulder (principal) | CPT/HCPCS: 73030 ==

== ENCOUNTER → 2025-04-30 17:25 | Outpatient (BNVA) | payer MEDICARE, MEDICAID, SELFPAY | PROVIDERS: PCP Nurse Practitioner Family; Visit Provider Emergency Medicine | DX: R39.9 Unspecified symptoms and signs involving the genitourinary system (principal); N89.8 Other specified noninflammatory disorders of vagina; N39.0 Urinary tract infection, site not specified; R31.9 Hematuria, unspecified | CPT/HCPCS: 81000 ==

== ENCOUNTER → 2025-05-01 09:04 | Outpatient (BNVA) | payer MEDICARE, MEDICAID, SELFPAY | PROVIDERS: PCP Nurse Practitioner Family; Visit Provider Emergency Medicine | DX: N89.8 Other specified noninflammatory disorders of vagina (principal) | CPT/HCPCS: 81513; 87481; 87491; 87591; 87661 ==

== ENCOUNTER → 2025-06-08 11:01 | Outpatient (BNVA) | payer MEDICARE, MEDICAID, SELFPAY | PROVIDERS: PCP Nurse Practitioner Family; Visit Provider Nurse Practitioner Family | DX: E11.65 Type 2 diabetes mellitus with hyperglycemia (principal); E78.2 Mixed hyperlipidemia | CPT/HCPCS: 80053; 80061; 84443; 85025 ==

== ENCOUNTER 2025-09-11 20:44 | Emergency (ER) | payer MEDICAID, OTHER, SELFPAY ==
[2025-09-11 20:49] VITALS: BP 158/90; PULSE 100; RESP 20; TEMP 37; O2SAT 96; BMI 51.3
--- OUTSIDE RECORDS SUMMARY | 2025-09-11 20:54 | XMS_ITS | Clinical Summary ---
Author Organization [employer] Address [address] [facility] Attn: Epic Prelude ADT NIK BARONE [id number] Care Team Providers Care Clinic Scheduler Name Role Phone Unavailable Primary Care Provider Unavailabl e Social History Tobacco Use Types Packs/Day Years Used Date Smoking Tobacco: Never Assessed Comments Unknown Sex and Gender Information Value Date Recorded Sex Assigned at Not on file Legal Sex Female 3:33 PM CDT Gender Identity Not on file Sexual Orientation Not on file Plan of Treatment Health Maintenance Due Date Last Done Comments DTAP/TDAP/TD VACCINES (1 - Tdap) 02/18/1995 HEPATITIS B VACCINES (1 of 3 - 19+ 3-dose series) 01/23 HPV/Cotest (21-29) 02/18/1997 CERVICAL CANCER SCREENING 02/18/2006 HPV/Cotest (30-65) 02/18/2006 PAP SMEAR 02/18/2006 BREAST CANCER SCREENING 2016 COLORECTAL SCREENING 02/18/2021 Colorectal Cancer Screening 02/18/2021 FIT-DNA Q 3 years 02/18/2021 FIT/FOBT Q 1 year 02/18/2021 Flex Sig/CT Colonography Q 5 years 02/18/2021 INFLUENZA VACCINE (#1) 2025
--- NOTE | 2025-09-11 21:04 | XRR_ITS ---
PROCEDURE INFORMATION: Exam: XR Right Foot Exam date and time: 09/11/2025 9:05 PM Age: 50 years old Clinical indication: Right; C/O sudden severe pain to plantar surface of foot while walking. Unable to bear weight. ; Additional info: Injury TECHNIQUE: Imaging protocol: Radiologic exam of the right foot. Views: 3 or more views. COMPARISON: No relevant prior studies available. FINDINGS: Bones/joints: Normal. Soft tissues: Normal. XR/XR foot RT min 3V* [id number] IMPRESSION: No acute findings.
--- NOTE | 2025-09-11 21:11 | W.ED.EXTPRO ---
HPI - Extremity Problem General: Chief complaint: Extremity Injury, Lower Stated complaint: pain in RT foot Time Seen by Provider: 09/11/25 21:00 Source: patient Mode of arrival: ambulatory Limitations: no limitations History of Present Illness: 50-year-old female states she is well across the floor felt a pop in her right foot and has had extreme pain since then. States her pain is currently 9 out of 10 states she not been able to put any weight on that foot. Denies any ankle pain or any other pain Related Data Previous Rx's ?Medication ?Instructions ?Recorded glucose meter #1 ea 05/29/20 Nebulizer tubing/supplies #1 ea 10/30/22 ikymlcjo-ihsyzkjij-pflpmgbeb 3.5 4 drp otic (ear) Q8H 10 days #10 mL 12/26/23 mg-10,000 unit/mL-1 % ear drops,susp C-Pap Supplies #1 ea 03/15/24 pen needle, diabetic 31 gauge x #100 ea 04/30/2411/27 (UltiCare Pen Needle) blood sugar diagnostic (NewStep NetworksTouch #50 strips 12/22/24 Ultra Test strips) albuterol sulfate 2.5 mg/3 mL See Rx Instructions .Route 06/08/25 (0.083 %) solution for nebulization .COMPLEX #180 mL albuterol sulfate 90 mcg/actuation See Rx Instructions .Route 06/08/25 aerosol inhaler .COMPLEX #8.5 grams atorvastatin 80 mg tablet See Rx Instructions .Route 06/08/25 .COMPLEX #30 tabs azelastine 137 mcg (0.1 %) nasal See Rx Instructions .Route 06/08/25 spray .COMPLEX #30 mL budesonide-formoterol HFA 160 2 inh inhalation Q12H #10.2 grams 06/08/25 mcg-4.5 mcg/actuation aerosol inhaler (Symbicort) cetirizine 10 mg tablet See Rx Instructions .Route 06/08/25 .COMPLEX #30 tabs citalopram 40 mg tablet See Rx Instructions .Route 06/08/25 .COMPLEX #90 tabs cyclobenzaprine 10 mg tablet 10 mg PO TID PRN muscle spasm 30 06/08/25 days #90 tabs flash glucose sensor (FreeStyle #2 kits 06/08/25 Magdy 2 Sensor kit) fluticasone propionate 50 See Rx Instructions .Route 06/08/25 mcg/actuation nasal .COMPLEX #16 grams spray,suspension furosemide 40 mg tablet See Rx Instructions .Route 06/08/25 .COMPLEX #30 tabs insulin glargine 100 unit/mL (3 15 unit (0.15 mL) SUBCUT DAILY #15 06/08/25 mL) subcutaneous pen (Lantus mL Solostar U-100 Insulin) montelukast 10 mg tablet See Rx Instructions .Route 06/08/25 .COMPLEX #30 tabs pantoprazole 40 mg tablet,delayed See Rx Instructions .Route 06/08/25 release .COMPLEX #30 tabs simethicone 180 mg capsule (Gas 180 mg PO BID PRN abdominal 06/08/25 Relief (simethicone)) distention 30 days #60 caps cholecalciferol (vitamin D3) 50 50 mcg PO QAM 90 days #90 caps 07/05/25 mcg (2,000 unit) capsule gabapentin 400 mg capsule 400 mg PO TID 30 days #90 caps 07/05/25 potassium chloride 10 mEq 10 meq PO QAM 30 days #30 caps 07/05/25 capsule,extended release amoxicillin 875 mg-potassium 1 tab PO BID #20 tabs 07/14/25 clavulanate 125 mg tablet ondansetron 8 mg disintegrating 8 mg PO Q8H PRN nausea and 07/14/25 tablet vomiting #30 tabs wtxtmwhy-ylqfmalrj-lkqrnvhpp 3.5 4 drp otic (ear) Q8H 10 days #10 mL 07/19/25 mg-10,000 unit/mL-1 % ear drops,susp hydrocodone 5 mg-acetaminophen 325 1 tab PO Q6H PRN pain #14 tabs 09/11/25 mg tablet Allergies Allergy/AdvReac Type Severity Reaction Status Date / Time empagliflozin (From Allergy Severe felt like Verified 09/11/25 20:51 Jardiance) she was having a heart attack liraglutide (From Victoza) Allergy Mild made her Verified 09/11/25 20:51 sick acetaminophen (From Tylenol Allergy Unknown Verified 09/11/25 20:51 PM) mold Allergy Unknown Verified 09/11/25 20:51 sulfamethoxazole (From Allergy ALGY-Hives Verified 09/11/25 20:51 Bactrim) trimethoprim (From Bactrim) Allergy ALGY-Hives Verified 09/11/25 20:51 varenicline (From Chantix) AdvReac Severe ADR-Depress Verified 09/11/25 20:51 ion Review of Systems Musc: Reports: extremity pain PFS ED PFSH: Medical History Asthma Insomnia Nicotine abuse OCD (obsessive compulsive disorder) Acid reflux TMJ disease Exertional dyspnea Fibromyalgia Mixed hyperlipidemia PAULINA (obstructive sleep apnea) Diabetes mellitus Surgical History History of hysterectomy History of delivery History of cholecystectomy Family History Father Emphysema lung Myocardial infarct Mother Stroke Multiple sclerosis Social History Smoking and tobacco/nicotine status: current every day tobacco/nicotine user (no desire to quit smoking) Alcohol intake: current Alcohol intake frequency: holidays/special occasions only Marital status: Physical Exam Const: COMMON NORMALS: no acute distress, patient oriented x3 and healthy appearing HENMT: COMMON NORMALS: normocephalic and atraumatic HEAD & SCALP: normocephalic and atraumatic Eye: COMMON NORMALS: conjunctivae normal CONJUNCTIVA: Yes conjunctivae normal Neck/C-Spine: COMMON NORMALS: full ROM and supple Chest: COMMONS NORMALS: normal inspection of the chest Resp: COMMON NORMALS: normal respiratory effort Cardio: COMMON NORMALS: regular rate RATE: regular rate Extremity: COMMON NORMALS: full ROM Neuro: COMMON NORMALS: patient oriented x3, moves all extremities and no focal motor deficits Psych: COMMON NORMALS: mental status grossly normal, Normal thought process present and cooperative THOUGHT PROCESS: Normal thought process present Skin: COMMON NORMALS: no rashes or lesions noted and no wounds GENERAL SKIN EXAM: no rashes or lesions noted Course Vital Signs: Vital signs: Vital Signs Temperature 98.6 F 09/11/25 20:49 Pulse Rate 100 09/11/25 20:49 Respiratory Rate 20 H 09/11/25 20:49 Blood Pressure 158/90 09/11/25 20:49 Pulse Oximetry 96 09/11/25 20:49 MDM - Extremity (Nontraumatic) Medical Decision Making Patient presents here with foot pain on injury x-ray here shows a possible Lisfranc injury I did speak to Dr. Noe of podiatry will place patient in a splint we will get her crutches she is to be nonweightbearing and she is to follow-up with him next week I did go over imaging and plan she understands agrees to plan Medical Records I reviewed the patient's medical records. XR interpretation done by ED provider, pending radiology final review ED provider radiology interpretation(s): X-ray right foot possible Lisfranc injury Discharge Plan Discharge Patient Disposition: Home Clinical Impression: Lisfranc fracture Condition: Stable Prescriptions: New hydrocodone-acetaminophen 5-325 mg tablet 1 tab PO Q6H PRN (Reason: pain) Qty: 14 0RF No Action (DME) glucose meter See Rx Instructions .Route .MEDSUPPLY Qty: 1 0RF Rx Instructions: Freestyle magdy glucose meter. (DME) pen needle, diabetic [UltiCare Pen Needle] 31 gauge x 1/4 needle See Rx Instructions .ROUTE .COMPLEX Qty: 100 5RF Dose Instruction: USE TWICE DAILY Rx Instructions: USE TWICE DAILY ynqsdejc-rncekshup-JT 3.5-10,000-1 mg/mL-unit/mL-% drops,suspension 4 drp otic (ear) Q8H 10 Days Qty: 10 0RF awkutdrx-uguhfodpx-NM 3.5-10,000-1 mg/mL-unit/mL-% drops,suspension 4 drp otic (ear) Q8H 10 Days Qty: 10 0RF pantoprazole 40 mg tablet,delayed release (DR/EC) See Rx Instructions .ROUTE .COMPLEX Qty: 30 1RF Dose Instruction: TAKE ONE TABLET BY MOUTH EVERY evening Rx Instructions: TAKE ONE TABLET BY MOUTH EVERY evening montelukast 10 mg tablet See Rx Instructions .ROUTE .COMPLEX Qty: 30 1RF Dose Instruction: TAKE ONE TABLET BY MOUTH EVERY MORNING Rx Instructions: TAKE ONE TABLET BY MOUTH EVERY MORNING insulin glargine [Lantus Solostar U-100 Insulin] 100 unit/mL (3 mL) insulin pen 15 unit SUBCUT DAILY Qty: 15 0RF furosemide 40 mg tablet See Rx Instructions .ROUTE .COMPLEX Qty: 30 1RF Dose Instruction: TAKE ONE TABLET BY MOUTH EVERY MORNING Rx Instructions: TAKE ONE TABLET BY MOUTH EVERY MORNING fluticasone propionate 50 mcg/actuation spray,suspension See Rx Instructions .ROUTE .COMPLEX Qty: 16 2RF Dose Instruction: instill one SPRAY IN EACH NOSTRIL EVERY MORNING Rx Instructions: instill one SPRAY IN EACH NOSTRIL EVERY MORNING (DME) FreeStyle Magdy 2 Sensor Kit See Rx Instructions .ROUTE .COMPLEX Qty: 2 5RF Dose Instruction: USE DIRECTED TWICE DAILY *change every 14 days* Rx Instructions: USE DIRECTED TWICE DAILY *change every 14 days* citalopram 40 mg tablet See Rx Instructions .ROUTE .COMPLEX Qty: 90 1RF Dose Instruction: TAKE ONE TABLET BY MOUTH EVERY MORNING Rx Instructions: TAKE ONE TABLET BY MOUTH EVERY MORNING Symbicort 160-4.5 mcg/actuation HFA aerosol inhaler 2 inh inhalation Q12H Qty: 10.2 5RF simethicone [Gas Relief (simethicone)] 180 mg capsule 180 mg PO BID PRN (Reason: abdominal distention) 30 Days Qty: 60 1RF atorvastatin 80 mg tablet See Rx Instructions .ROUTE .COMPLEX Qty: 30 1RF Dose Instruction: TAKE ONE TABLET BY MOUTH EVERY evening Rx Instructions: TAKE ONE TABLET BY MOUTH EVERY evening azelastine 137 mcg (0.1 %) spray,non-aerosol See Rx Instructions .ROUTE .COMPLEX Qty: 30 5RF Dose Instruction: USE 2 SPRAYS IN EACH NOSTRIL TWICE DAILY Rx Instructions: USE 2 SPRAYS IN EACH NOSTRIL TWICE DAILY cyclobenzaprine 10 mg tablet 10 mg PO TID PRN (Reason: muscle spasm) 30 Days Qty: 90 1RF cetirizine 10 mg tablet See Rx Instructions .ROUTE .COMPLEX Qty: 30 5RF Dose Instruction: TAKE ONE TABLET BY MOUTH At Bedtime Rx Instructions: TAKE ONE TABLET BY MOUTH At Bedtime albuterol sulfate 90 mcg/actuation HFA aerosol inhaler See Rx Instructions .ROUTE .COMPLEX Qty: 8.5 2RF Dose Instruction: USE 2 INHALATIONS EVERY 6 HOURS NEEDED FOR SHORTNESS OF BREATH Rx Instructions: USE 2 INHALATIONS EVERY 6 HOURS NEEDED FOR SHORTNESS OF BREATH albuterol sulfate 2.5 mg /3 mL (0.083 %) solution for nebulization See Rx Instructions .ROUTE .COMPLEX Qty: 180 2RF Dose Instruction: inhale THE contents of 1 vial PER NEBULIZER EVERY 4 HOURS NEEDED FOR SHORTNESS OF BREATH OR wheezing Rx Instructions: inhale THE contents of 1 vial PER NEBULIZER EVERY 4 HOURS NEEDED FOR SHORTNESS OF BREATH OR wheezing amoxicillin-pot clavulanate 875-125 mg tablet 1 tab PO BID Qty: 20 0RF ondansetron 8 mg tablet,disintegrating 8 mg PO Q8H PRN (Reason: nausea and vomiting) Qty: 30 0RF (DME) Nebulizer tubing/supplies See Rx Instructions .Route .MEDSUPPLY Qty: 1 3RF Rx Instructions: As directed (DME) C-Pap Supplies See Rx Instructions .Route .MEDSUPPLY Qty: 1 0RF Rx Instructions: As directed (DME) OneTouch Ultra Test Strip See Rx Instructions .ROUTE .COMPLEX Qty: 50 5RF Dose Instruction: USE DIRECTED TO test one daily Rx Instructions: USE DIRECTED TO test one daily potassium chloride 10 mEq capsule, extended release 10 meq PO QAM 30 Days Qty: 30 5RF cholecalciferol (vitamin D3) 50 mcg (2,000 unit) capsule 50 mcg PO QAM 90 Days Qty: 90 1RF gabapentin 400 mg capsule 400 mg PO TID 30 Days Qty: 90 5RF Discharge Orders: Discharge ED (Routine); Ordered 09/11/25 Ordered By: Reed Lora Referrals: Lizy Harris FNP-C [Primary Care Provider, Family Practice] Manuel Noe DPM [Physician, Podiatry] - 4-7 days Discharge Diet: Advance as tolerated Discharge Activity: Use walker/crutches as instructed Patient Instructions: Foot Fracture in Adults (ED), Opioid Safety Print Language: Greenlandic Coding Level of Care Code ED History Department Chair for Mathew Sandoval
[2025-09-11] MEDS: HYDROcodone-acetaminophen 5-325 mg Tablet 1 TAB PO (21:14)
[2025-09-11 22:09] VITALS: BP 167/89; PULSE 89; O2SAT 95
== END 2025-09-11 22:09 | disposition home or self-care (01) ==
PROVIDERS: Emergency Provider Emergency Medicine; PCP Nurse Practitioner Family
DX: S92.811A Other fracture of right foot, initial encounter for closed fracture (principal); Z79.4 Long term (current) use of insulin; Z72.0 Tobacco use; E11.9 Type 2 diabetes mellitus without complications; E78.2 Mixed hyperlipidemia; X58.XXXA Exposure to other specified factors, initial encounter
CPT/HCPCS: 29515; 73630; 99283; E0114; J9999

== ENCOUNTER 2025-09-13 13:50 | Outpatient (CLI) | payer OTHER, MEDICAID, SELFPAY | END 2025-09-13 13:51 | disposition home or self-care (01) | LOC: SPT 13:53 | PROVIDERS: PCP Nurse Practitioner Family; Visit Provider Podiatrist Foot & Ankle Surgery | DX: Z46.89 Encounter for fitting and adjustment of other specified devices (principal); S93.324D Dislocation of tarsometatarsal joint of right foot, subsequent encounter; X58.XXXD Exposure to other specified factors, subsequent encounter | CPT/HCPCS: 99204; L4361 ==

== ENCOUNTER 2025-09-23 07:13 | Outpatient (CLI) | payer OTHER, MEDICAID, SELFPAY ==
--- NOTE | 2025-09-23 07:30 | CT_ITS ---
WS: [id number] CT RIGHT FOOT, NONCONTRAST HISTORY: lisfranc dislocation Technique: All CT scans at [facility] use at least one of these dose optimization techniques: automated exposure control; mA and/or kV adjustment per patient size (includes targeted exams where dose is matched to clinical indication); or iterative reconstruction. DLP: 106.88 mGy.cm COMPARISON: Foot radiograph 09/11/2025 No acute fractures are identified involving the foot. There is normal alignment at the tarsometatarsal articulation. No CT evidence for avulsion fractures or displacement along the Lisfranc articulation. There is normal alignment between the tarsals and the metatarsals. No fractures identified. No significant amount of soft tissue edema surrounding the midfoot. Several hammertoe deformities. Talus and calcaneus are intact. CT/CT foot RT wo con* [id number] IMPRESSION: 1. No evidence for separation at the Lisfranc articulation. 2. No definite fractures are identified at the tarsometatarsal articulation. C onsider MRI evaluation if there is continued concern for Lisfranc injury. Weigh tbearing radiographs may be appropriate for instability evaluation.
[2025-09-23 08:20] LABS: Estmated Average Glucose 249; Hemoglobin A1C 10.3 % (4.0-6.0)
== END 2025-09-23 07:14 | disposition home or self-care (01) ==
PROVIDERS: PCP Nurse Practitioner Family; Visit Provider Podiatrist Foot & Ankle Surgery
DX: S93.321A Subluxation of tarsometatarsal joint of right foot, initial encounter (principal); X58.XXXA Exposure to other specified factors, initial encounter; E11.65 Type 2 diabetes mellitus with hyperglycemia; M20.41 Other hammer toe(s) (acquired), right foot
CPT/HCPCS: 36415; 73700; 83036

== ENCOUNTER → 2025-10-03 13:23 | Outpatient (BNVA) | payer OTHER, MEDICAID, SELFPAY | PROVIDERS: PCP Nurse Practitioner Family; Visit Provider Podiatrist Foot & Ankle Surgery | DX: M79.672 Pain in left foot (principal) | CPT/HCPCS: 99213 ==

== ENCOUNTER 2025-10-10 15:08 | Outpatient (CLI) | payer OTHER, MEDICAID, SELFPAY ==
--- NOTE | 2025-10-10 15:20 | MM_ITS ---
WS: [id number] BILATERAL 3D TOMOSYNTHESIS DIGITAL SCREENING MAMMOGRAPHY WITH CAD CLINICAL INFORMATION: Z12.39 - Encounter for other screening for malignant neop... HISTORY: Screening mammogram. No current complaints. COMPARISON: 2022 TECHNIQUE: Bilateral CC and MLO views. FINDINGS: Scattered fibroglandular densities bilaterally. No suspicious focal mass, asymmetry, calcifications, or architectural distortion. No evidence of malignancy. Vascular calcification. Incidental punctate calcifications. Stable nodular densities RIGHT breast some of which are intramammary lymph nodes. MM/MM [facility] tomosynthesis [id number] IMPRESSION: DENSITY: There are scattered areas of fibroglandular density. BI-RADS: 2 - Benign. FOLLOW UP: 1 Year Follow-up Recommend return to annual screening mammography.
== END 2025-10-10 15:09 | disposition home or self-care (01) ==
PROVIDERS: PCP Nurse Practitioner Family; Visit Provider Nurse Practitioner Family
DX: Z12.39 Encounter for other screening for malignant neoplasm of breast (principal); Z12.31 Encounter for screening mammogram for malignant neoplasm of breast; R92.323 Mammographic fibroglandular density, bilateral breasts; R92.1 Mammographic calcification found on diagnostic imaging of breast
CPT/HCPCS: 77063; 77067